=== PATIENT | female | born 1995 | race African-American/Black ===

== ENCOUNTER 2017-12-06 15:43 | Inpatient (IN) | payer BC ==
[2017-12-06 17:13] LABS: ABSOLUTE BASOPHILS # (AUTO) 0.1 10^3/uL (0.0-0.2); ABSOLUTE EOSINOPHILS # (AUTO) 0.1 10^3/uL (0.0-0.6); ABSOLUTE LYMPHOCYTES (AUTO) 2.6 10^3/uL (0.5-4.7); ABSOLUTE MONOCYTES (AUTO) 1.2 10^3/uL (0.1-1.4); ABSOLUTE NEUT (AUTO) 11.1 10^3/uL (1.7-8.2); BASOPHILS % (AUTO) 0.7 % (0-2); EOSINOPHILS % (AUTO) 0.5 % (0-6); HEMATOCRIT 46.5 % (36.0-47.0); HEMOGLOBIN 15.2 g/dL (12.0-15.5); LYMPHOCYTES % (AUTO) 17.1 % (13-45); MEAN CORPUSCULAR HEMOGLOBIN 25.9 pg (27.0-33.4); MEAN CORPUSCULAR HGB CONC 32.7 g/dL (32.0-36.0); MEAN CORPUSCULAR VOLUME 79 fl (80-97); MONOCYTES % (AUTO) 7.9 % (3-13); PLATELET COUNT 139 10^3/uL (150-450); RED BLOOD COUNT 5.86 10^6/uL (3.72-5.28); RED CELL DISTRIBUTION WIDTH 15.5 % (11.5-14.0); SEGMENTED NEUTROPHILS % (AUTO) 73.8 % (42-78); TOTAL CELLS COUNTED % (AUTO) 100 %; WHITE BLOOD COUNT 15.1 10^3/uL (4.0-10.5)
[2017-12-06 17:35] LABS: ALANINE AMINOTRANSFERASE 24 U/L (9-52); ALBUMIN 3.6 g/dL (3.5-5.0); ALKALINE PHOSPHATASE 164 U/L (38-126); ANION GAP 13 (5-19); ASPARTATE AMINO TRANSFERASE 18 U/L (14-36); BILIRUBIN,DIRECT 0.2 mg/dL (0.0-0.4); BILIRUBIN,TOTAL 0.6 mg/dL (0.2-1.3); BLOOD UREA NITROGEN 9 mg/dL (7-20); CALCIUM 8.8 mg/dL (8.4-10.2); CARBON DIOXIDE 22 mmol/L (22-30); CHLORIDE 104 mmol/L (98-107); GLUCOSE 87 mg/dL (75-110); LIPASE 102.2 U/L (23-300); POTASSIUM 4.2 mmol/L (3.6-5.0); SODIUM 138.9 mmol/L (137-145); TOTAL PROTEIN 6.5 g/dL (6.3-8.2)
--- NOTE | 2017-12-06 18:03 | RADIOLOGY REPORT (SQ) ---
EXAM DESCRIPTION: U/S ABDOMEN LIMITED W/O DOP COMPLETED DATE/TIME: 12/06/2017 5:23 pm REASON FOR STUDY: r/o gb disease COMPARISON: None. TECHNIQUE: Dynamic and static grayscale images acquired of the abdomen and recorded on PACS. Additio nal selected color Doppler and spectral images recorded. LIMITATIONS: Study is limited due to the patient's body habitus FINDINGS: PANCREAS: No masses. No peripancreatic edema or fluid collections. LIVER: Echotexture is coarse with increased echogenicity consistent with fatty infiltration. LIVER VASCULATURE: Normal directional flow of the main portal vein. GALLBLADDER: No stones. There is thickening of the mckeon of the gallbladder measuring 6.6 mm. The p ossibility of an acalculous cholecystitis cannot be excluded. This could also be related to adenomyo matosis. No pericholecystic fluid. ULTRASOUND-DETECTED GILL'S SIGN: Negative. INTRAHEPATIC DUCTS AND COMMON DUCT: CBD and intrahepatic ducts normal caliber. No filling defects. INFERIOR VENA CAVA: Normal flow. AORTA: No aneurysm. RIGHT KIDNEY: 11.3 cm in length. Normal echogenicity. No solid or suspicious masses. No hydron ephrosis. No calcifications. PERITONEAL AND RIGHT PLEURAL SPACE: No ascites or effusions. OTHER: No other significant finding. IMPRESSION: FATTY INFILTRATION OF THE LIVER. No gallstones are identified. There is thickening of the mckeon of the gallbladder and the possibility of an acalculous cholecystitis cannot be excluded. This could also be related to adenomyomatosis. Clinical correlation is recommended. Other findings as noted above TECHNICAL DOCUMENTATION: JOB ID: [id number] [employer]- All Rights Reserved Reading location - IP/workstation name: [facility]
[2017-12-06] MEDS ORDERED: ONDANSETRON HCL INJ/PF 4 MG/2 ML SDV IV ONE (18:30)
[2017-12-06] MEDS ORDERED: NORMAL SALINE 1000 ML 1,000 ML IV ONE (18:33)
--- NOTE | 2017-12-06 18:34 | ER Document Report ---
ED GI/ - General Chief Complaint: Vomiting Stated Complaint: VOMITING Time Seen by Provider: 12/06/17 16:05 Mode of Arrival: Ambulatory Information source: Patient - HPI Patient complains to provider of: Abdominal pain Notes: 12/06/17 18:30 Patient is here with her mother at the bedside. She here with complaints of nausea, vomiting, abdominal pain for the last 3 days. Pain has been intermittent. Is located in her right upper quadrant and epigastric area. She reports having fevers at the onset, but believes that fevers have resolved. She denies any dysuria or hematuria. No diarrhea. She states it has been a few days and she has had a bowel movement. She denies any chest pain shortness of breath. No rash. She has had no prior abdominal surgeries. Nothing in particular seems to make the pain better or worse. No headache, blurred vision , numbness, tingling, weakness. No other complaints at this time. - Related Data Allergies/Adverse Reactions: tramadol Allergy (Verified 12/06/17 15:45) Past Medical History - Social History Smoking Status: Current Every Day Smoker Frequency of alcohol use: None Drug Abuse: None Family History: Reviewed & Not Pertinent Patient has suicidal ideation: No Patient has homicidal ideation: No Renal/ Medical History: Denies: Hx Peritoneal Dialysis Past Surgical History: Reports: Hx Orthopedic Surgery Review of Systems - Review of Systems -: Yes All other systems reviewed and negative Physical Exam - Vital signs Vitals: Temp Pulse Resp BP Pulse Ox 98.0 F 92 18 126/75 H 99 12/06/17 15:47 12/06/17 15:47 12/06/17 15:47 12/06/17 15:47 12/06/17 15:47 - Notes Notes: GENERAL: alert, cooperative, nontoxic, no distress. HEAD: normocephalic, atraumatic EYES: conjunctiva pink without discharge, no external redness or swelling. EARS: no external swelling, no external redness NOSE: atraumatic, no external swelling MOUTH/THROAT: mucous membranes moist and pink, posterior pharynx without erythema, swelling, exudate. No trismus or drooling. NECK: soft, supple, full range of motion, no meningismus. CHEST: no distress, lungs clear and equal throughout. No wheezing, rales, rhonchi. CARDIAC: regular rate and rhythm, no murmur, normal capillary refill, normal pulses. No peripheral edema noted. ABDOMEN: Soft, obese. Tenderness to the right upper quadrant and epigastric area. Voluntary guarding. Positive Miles sign. No lower abdominal tenderness. No pain at McBurney's point. BACK: full range of motion, mild right CVA tenderness. EXTREMITIES: full range of motion of all extremities. No redness, no swelling. NEURO: alert and oriented x 3, no focal deficits, full range of motion of all extremities. PYSCH: appropriate mood, affect. Patient is cooperative. SKIN: pink, warm, dry, no rash. Course - Re-evaluation Re-evalutation: 12/06/17 18:47 Patient with elevated white count of 15, tenderness in the right upper quadrant , slight elevation in her alk phos at 164. Ultrasound shows gallbladder wall thickening with no gallstones. Radiologist reads this as a possible acalculous cholecystitis. I discussed the case with Dr. Bedoya of surgery, he will come and evaluate the patient emergency department. 12/06/17 19:16 Patient was seen by Dr. Bedoya. He agrees that she likely has cholecystitis. He will admit the patient overnight for cholecystectomy tomorrow. Patient is aware of this. She will be given Zosyn as requested per the surgeon. - Vital Signs Vital signs: Temp Pulse Resp BP Pulse Ox 98.0 F 92 18 126/75 H 99 12/06/17 15:47 12/06/17 15:47 12/06/17 15:47 12/06/17 15:47 12/06/17 15:47 - Laboratory Result Diagrams: 12/06/17 17:00 12/06/17 17:00 Laboratory results interpreted by me: 12/06/17 12/06/17 12/06/17 17:00 17:00 18:22 WBC 15.1 H RBC 5.86 H MCV 79 L MCH 25.9 L RDW 15.5 H Plt Count 139 L Absolute Neutrophils 11.1 H Alkaline Phosphatase 164 H Urine Protein 100 H Urine Blood SMALL H Urine Urobilinogen 4.0 H Ur Leukocyte Esterase SMALL H - Diagnostic Test Radiology reviewed: Image reviewed, Reports reviewed - No gallstones. Fatty infiltration of the liver. Gallbladder wall thickening concerning for possible acalculous cholecystitis. Discharge - Discharge Clinical Impression: Acute cholecystitis Condition: Stable Disposition: ADMITTED OBSERVATION Admitting Provider: YAZMIN Unit Admitted: Surgical Floor
[2017-12-06 18:44] LABS: APPEARANCE,URINE SLIGHTLY-CLOUDY; BILIRUBIN,URINE NEGATIVE (NEGATIVE); GLUCOSE, URINE NEGATIVE (NEGATIVE); KETONES,URINE NEGATIVE (NEGATIVE); LEUKOCYTE ESTERASE,URINE SMALL (NEGATIVE); NITRITE,URINE NEGATIVE (NEGATIVE); PROTEIN,URINE 100 mg/dL (NEGATIVE); URINE SPECIFIC GRAVITY 1.028
[2017-12-06 18:48] LABS: COLOR,URINE YELLOW
[2017-12-06] MEDS ORDERED: PIPERACILLIN/TAZOBACTAM 4.5 GM VIAL IV ONE (19:15)
--- NOTE | 2017-12-06 19:35 | PDOC H&P ---
History of Present Illness Admission Date/PCP: 12/06/17 Patient complains of: RUQ and epigastric pain with nausea and vomiting History of Present Illness: ADRIANO VINES is a 22 year old female with a 1 week history of intense nausea, constipation, poor appetite, low grade temperature (99.4) as measured at a local [facility] center, and night sweats. An US of the GB has been done which reveals a thickened gallbladder without stones wall as per acute acalculous cholecystitis. Past Medical History Traumatic Medical History: Reports: Other - copper snake bite of her left foot Past Surgical History Past Surgical History: Reports: Orthopedic Surgery - Left foot debridment x 2 after copper snake bite Social History Smoking Status: Current Every Day Smoker - more than 1 ppd Frequency of Alcohol Use: None Hx Recreational Drug Use: No Family History Parental Family History Reviewed: No Children Family History Reviewed: No Sibling(s) Family History Reviewed.: No Medication/Allergy Allergies/Adverse Reactions: tramadol Allergy (Verified 12/06/17 15:45) Physical Exam Vital Signs: Temp Pulse Resp BP Pulse Ox 98.0 F 92 18 126/75 H 99 12/06/17 15:47 12/06/17 15:47 12/06/17 15:47 12/06/17 15:47 12/06/17 15:47 Intake & Output 12/05/17 12/06/17 12/07/17 06:59 06:59 06:59 Weight 137.3 kg General appearance: PRESENT: no acute distress Head exam: PRESENT: atraumatic Respiratory exam: PRESENT: clear to auscultation brent Cardiovascular exam: PRESENT: RRR GI/Abdominal exam: PRESENT: Miles's sign, normal bowel sounds, soft Rectal exam: PRESENT: deferred Musculoskeletal exam: PRESENT: full ROM Neurological exam: PRESENT: alert, altered, awake, oriented to time Skin exam: PRESENT: warm Results Laboratory Results: 12/06/17 17:00 12/06/17 17:00 12/06/17 12/06/17 12/06/17 17:00 17:00 18:22 WBC 15.1 H RBC 5.86 H Hgb 15.2 Hct 46.5 MCV 79 L MCH 25.9 L MCHC 32.7 RDW 15.5 H Plt Count 139 L Seg Neutrophils % 73.8 Lymphocytes % 17.1 Monocytes % 7.9 Eosinophils % 0.5 Basophils % 0.7 Absolute Neutrophils 11.1 H Absolute Lymphocytes 2.6 Absolute Monocytes 1.2 Absolute Eosinophils 0.1 Absolute Basophils 0.1 Sodium 138.9 Potassium 4.2 Chloride 104 Carbon Dioxide 22 Anion Gap 13 BUN 9 Creatinine 0.69 Est GFR ( Amer) > 60 Est GFR (Non-Af Amer) > 60 Glucose 87 Calcium 8.8 Total Bilirubin 0.6 AST 18 ALT 24 Alkaline Phosphatase 164 H Total Protein 6.5 Albumin 3.6 Lipase 102.2 Urine Color YELLOW Urine Appearance SLIGHTLY-CLOUDY Urine pH 5.0 Ur Specific [place]ck 1.028 Urine Protein 100 H Urine Glucose (UA) NEGATIVE Urine Ketones NEGATIVE Urine Blood SMALL H Urine Nitrite NEGATIVE Ur Leukocyte Esterase SMALL H Urine WBC (Auto) 9 Urine RBC (Auto) 3 Impressions: Abdomen Ultrasound 12/06/17 16:07 IMPRESSION: FATTY INFILTRATION OF THE LIVER. No gallstones are identified. There is thickening of the mckeon of the gallbladder and the possibility of an acalculous cholecystitis cannot be excluded. This could also be related to adenomyomatosis. Clinical correlation is recommended. Other findings as noted above Assessment & Plan - Diagnosis (1) Cholecystitis, acute Is this a current diagnosis for this admission?: Yes - Plan Summary Plan Summary: A/ RUQ and epigastric pain with intense nausea Leukocytosis US of GB significant for thickened gallbladder wall @ 6 mm P/ Admit Clear liquid diet NPO after midnight IVF Zosyn 3.375 gr IVPB q6 Consent for laparoscopic cholecystectomy, possible open, possible cholangiogram in AM Procedure,m risks, benefits, complications, including liver bleeding and common bile duct injury requiring transfer to a tertiary center for open repair discussed with the patient, she understand all the above, her questions were answered, and she decided to proceed.
[2017-12-06] MEDS ORDERED: HYDROMORPHONE HCL INJ/PF 2 MG/ML AMPULE ONE (21:40)
[2017-12-06] MEDS ORDERED: ONDANSETRON HCL INJ/PF 4 MG/2 ML SDV ONE (21:43)
[2017-12-06] MEDS ORDERED: HYDROMORPHONE HCL INJ 2 MG/ML 20 ML MDV IV PRN (21:47)
[2017-12-06] MEDS: PIPERACILLIN SODIUM/TAZOBACTAM 3.375 GM in NORMAL SALINE 100 ML IV SCH (23:54)
[2017-12-06] MEDS: FAMOTIDINE INJ/PF 20 MG/2 ML SDV IV SCH (23:54)
[2017-12-07] MEDS ORDERED: NORMAL SALINE 1000 ML 1,000 ML IV PRN (00:01)
[2017-12-07] MEDS ORDERED: HYDROMORPHONE HCL INJ/PF 2 MG/ML AMPULE ONE (00:09)
[2017-12-07 06:06] LABS: ABSOLUTE BASOPHILS # (AUTO) 0.1 10^3/uL (0.0-0.2); ABSOLUTE LYMPHOCYTES (AUTO) 2.2 10^3/uL (0.5-4.7); ABSOLUTE MONOCYTES (AUTO) 0.9 10^3/uL (0.1-1.4); ABSOLUTE NEUT (AUTO) 12.6 10^3/uL (1.7-8.2); BASOPHILS % (AUTO) 0.3 % (0-2); EOSINOPHILS % (AUTO) 0.2 % (0-6); HEMATOCRIT 43.5 % (36.0-47.0); LYMPHOCYTES % (AUTO) 13.8 % (13-45); MEAN CORPUSCULAR HEMOGLOBIN 25.9 pg (27.0-33.4); MEAN CORPUSCULAR HGB CONC 32.3 g/dL (32.0-36.0); MEAN CORPUSCULAR VOLUME 80 fl (80-97); PLATELET COUNT 106 10^3/uL (150-450); RED BLOOD COUNT 5.42 10^6/uL (3.72-5.28); RED CELL DISTRIBUTION WIDTH 15.3 % (11.5-14.0); SEGMENTED NEUTROPHILS % (AUTO) 79.7 % (42-78); TOTAL CELLS COUNTED % (AUTO) 100 %; WHITE BLOOD COUNT 15.8 10^3/uL (4.0-10.5)
[2017-12-07 06:17] LABS: ALANINE AMINOTRANSFERASE 26 U/L (9-52); ALKALINE PHOSPHATASE 136 U/L (38-126); ANION GAP 10 (5-19); ASPARTATE AMINO TRANSFERASE 15 U/L (14-36); BILIRUBIN,DIRECT 0.5 mg/dL (0.0-0.4); BILIRUBIN,TOTAL 0.7 mg/dL (0.2-1.3); BLOOD UREA NITROGEN 10 mg/dL (7-20); CALCIUM 8.1 mg/dL (8.4-10.2); CARBON DIOXIDE 19 mmol/L (22-30); CHLORIDE 110 mmol/L (98-107); GLUCOSE 88 mg/dL (75-110); POTASSIUM 4.4 mmol/L (3.6-5.0); SODIUM 139.4 mmol/L (137-145); TOTAL PROTEIN 5.9 g/dL (6.3-8.2)
[2017-12-07] MEDS: PIPERACILLIN SODIUM/TAZOBACTAM 3.375 GM in NORMAL SALINE 100 ML IV SCH ×4 (06:21→23:45)
[2017-12-07] MEDS ORDERED: BUPIVACAINE HCL 0.5%-EPI 1:200000 INJ/PF 30 ML VIAL ONE (06:50)
[2017-12-07] MEDS ORDERED: FENTANYL CITRATE INJ/PF 250 MCG/5 ML AMPULE ONE (07:00)
[2017-12-07] MEDS ORDERED: FENTANYL CITRATE INJ/PF 100 MCG/2 ML AMPUL ONE (07:01)
[2017-12-07] MEDS ORDERED: MIDAZOLAM 2 MG/2 ML INJ ONE (07:01)
[2017-12-07] MEDS ORDERED: EPHEDRINE SULFATE INJ 50 MG/1 ML AMPULE ONE (07:01)
[2017-12-07] MEDS ORDERED: ACETAMINOPHEN 100 ML IV ONE (07:02)
[2017-12-07] MEDS ORDERED: PROPOFOL INJ 200 MG/20 ML VIAL IV ONE (07:02)
[2017-12-07] MEDS ORDERED: PROMETHAZINE HCL INJ 25 MG/1 ML VIAL IV PRN (08:54)
[2017-12-07] MEDS ORDERED: MEPERIDINE HCL/PF INJ 25 MG/1 ML DISP.SYRIN IV PRN (08:54)
[2017-12-07] MEDS ORDERED: FENTANYL CITRATE INJ/PF 100 MCG/2 ML AMPUL IV PRN ×3 (08:54)
[2017-12-07] MEDS ORDERED: DIPHENHYDRAMINE HCL 50 MG/ML VIAL IV PRN (08:54)
[2017-12-07] MEDS: FENTANYL CITRATE INJ/PF 100 MCG/2 ML AMPUL ONE ×2 (09:50→09:55)
--- NOTE | 2017-12-07 09:53 | Operative Report ---
Operative Report DATE OF SURGERY: 12/07/17 PREOPERATIVE DIAGNOSIS: acute cholecystitis with cholelithiasis POSTOPERATIVE DIAGNOSIS: same OPERATION: laparoscopic cholecystectomy SURGEON: CECILIA ARCE 1ST EN[employer]MENT[employer] HE[employer] INSPECTOR: YESSY TOBAR ANESTHESIA: GA - plus 30 mL 0.5% marcaine TISSUE REMOVED OR ALTERED: gallbladder COMPLICATIONS: none ESTIMATED BLOOD LOSS: < 5mL INTRAOPERATIVE FINDINGS: inflamed gallbladder with cholelithiasis PROCEDURE: laparoscopic cholecystectomy
[2017-12-07] MEDS ORDERED: PROMETHAZINE HCL INJ 25 MG/1 ML VIAL ONE (10:02)
[2017-12-07] MEDS ORDERED: LIDOCAINE 2% INJ-PF (20 MG/ML) 2 ML AMPUL ONE (10:55)
[2017-12-07] MEDS ORDERED: SUCCINYLCHOLINE CHLORIDE INJ 200 MG/10 ML VIAL ONE (10:55)
[2017-12-07] MEDS ORDERED: GLYCOPYRROLATE INJ 0.4 MG/2 ML VIAL ONE (10:55)
[2017-12-07] MEDS ORDERED: NEOSTIGMINE METHYLSULFATE 10 MG/10 ML VIAL ONE (10:55)
[2017-12-07] MEDS ORDERED: ROCURONIUM BROMIDE INJ 50 MG/5 ML VIAL IV ONE (10:55)
[2017-12-07] MEDS ORDERED: ONDANSETRON HCL INJ/PF 4 MG/2 ML SDV ONE (10:55)
[2017-12-07] MEDS ORDERED: DEXAMETHASONE SOD PHOSPHATE INJ 4 MG/1 ML VIAL ONE (10:55)
[2017-12-07] MEDS: FAMOTIDINE INJ/PF 20 MG/2 ML SDV IV SCH (11:25)
[2017-12-07] MEDS: NORMAL SALINE 1000 ML 1,000 ML IV PRN (11:30)
--- NOTE | 2017-12-07 11:30 | OPERATIVE REPORT E ---
Operative Report NAME: ADRIANO VINES : 1995 AGE: 22Y DATE OF SURGERY: 12/07/2017 ROOM: 210 PREOPERATIVE DIAGNOSIS: 1. Acute cholecystitis. 2. Cholelithiasis. POSTOPERATIVE DIAGNOSIS: 1. Acute cholecystitis. 2. Cholelithiasis. OPERATION: Laparoscopic cholecystectomy. SURGEON: CECILIA ARCE M.D. PROCEDURE: The patient was brought into the operating room. The patient was placed in supine position. General anesthesia induced by endotracheal intubation. Abdomen prepped and draped in the usual fashion. A 5 mm port with Optiview adaptor and scope was inserted through the umbilicus twice, but the peritoneal cavity could not be entered. At this point, an incision was made in the left upper quadrant along the midclavicular line and a 5 mm port with scope and Optiview adaptor was inserted inside the peritoneal cavity. A pneumoperitoneum was obtained. The 5 mm port was inserted through the umbilical incision into the peritoneal cavity followed by an 11 mm port and two 5 mm ports inserted through the epigastrium and right upper quadrant of the abdomen, respectively. The patient was placed in a reversed Trendelenburg position with the right side elevated. The gallbladder fundus was grasped and retroflexed, with exposure of the triangle of Calot and the neck was pulled anterior and toward the patient right. With the hook cautery at low settings, the critical view of safety was obtained by dividing the peritoneal attachments of the gallbladder both medially and laterally along the gallbladder body. This was done on either side. The cystic duct was then slowly dissected with the hook cautery at low settings until the critical view of safety was obtained. After this, the cystic duct was double clipped proximally and distally, divided with scissors, and the gallbladder dissected off the liver bed with the hook cautery, extracted from the peritoneal cavity using an Endobag. The CO2 pneumoperitoneum was then re-established and the liver bed was inspected. No active bleeding was noted. The area was irrigated with about 200 mL of normal saline which was fully aspirated. After this, under direct visualization, using a Fadi-Cortez device, the epigastric fascial defect was closed with figure-of-8 0 Vicryl suture which was left untied. All the instruments were removed. The CO2 pneumoperitoneum was released. All ports were removed. The fascia defect in the epigastrium was closed. All the epigastrium was closed with the previously-placed 0 Vicryl figure-of-8 suture. All skin incisions were closed with subcuticular 4-0 Monocryl running suture with Dermabond applied. In addition, all incisions were injected with a total of 30 mL of 0.5% Marcaine with epinephrine. The patient tolerated the procedure well, was extubated, and transferred to the recovery room in satisfactory condition. DICTATING PHYSICIAN: CECILIA ARCE M.D. [id number] PHY#: [id number] ID: [id number] JOB#: [id number] ACCT: [id number] cc:CECILIA ARCE M.D. > MTDD
[2017-12-07] MEDS: HYDROMORPHONE HCL INJ/PF 2 MG/ML AMPULE IV PRN ×4 (15:02→23:45)
[2017-12-07] MEDS ORDERED: ACETAMINOPHEN 325 MG TABLET PO PRN (18:07)
[2017-12-07] MEDS ORDERED: MAGNESIUM CITRATE 296 ML BOTTLE PO PRN (21:37)
[2017-12-07] MEDS: NAPROXEN 250 MG TABLET PO PRN (22:09)
[2017-12-07] MEDS: HEPARIN SOD (PORCINE) 5,000 UNIT/ML 1 ML SYRINGE SUBCUT SCH (23:04)
[2017-12-08] MEDS: FAMOTIDINE INJ/PF 20 MG/2 ML SDV IV SCH ×3 (00:01→21:37)
[2017-12-08] MEDS ORDERED: MAGNESIUM CITRATE 296 ML BOTTLE ONE (00:15)
[2017-12-08] MEDS: PIPERACILLIN SODIUM/TAZOBACTAM 3.375 GM in NORMAL SALINE 100 ML IV SCH ×4 (05:41→23:20)
[2017-12-08] MEDS: NORMAL SALINE 1000 ML 1,000 ML IV PRN ×3 (05:42→23:20)
[2017-12-08 07:00] LABS: HEMATOCRIT 41.6 % (36.0-47.0); HEMOGLOBIN 13.4 g/dL (12.0-15.5); MEAN CORPUSCULAR HEMOGLOBIN 25.8 pg (27.0-33.4); MEAN CORPUSCULAR HGB CONC 32.1 g/dL (32.0-36.0); MEAN CORPUSCULAR VOLUME 80 fl (80-97); PLATELET COUNT 119 10^3/uL (150-450); RED BLOOD COUNT 5.19 10^6/uL (3.72-5.28); RED CELL DISTRIBUTION WIDTH 16.1 % (11.5-14.0); WHITE BLOOD COUNT 13.3 10^3/uL (4.0-10.5)
[2017-12-08 07:13] LABS: ALANINE AMINOTRANSFERASE 40 U/L (9-52); ALBUMIN 2.6 g/dL (3.5-5.0); ALKALINE PHOSPHATASE 105 U/L (38-126); ANION GAP 9 (5-19); ASPARTATE AMINO TRANSFERASE 30 U/L (14-36); BILIRUBIN,DIRECT 0.2 mg/dL (0.0-0.4); BILIRUBIN,TOTAL 0.4 mg/dL (0.2-1.3); BLOOD UREA NITROGEN 8 mg/dL (7-20); CALCIUM 7.8 mg/dL (8.4-10.2); CARBON DIOXIDE 20 mmol/L (22-30); CHLORIDE 109 mmol/L (98-107); GLUCOSE 127 mg/dL (75-110); POTASSIUM 4.1 mmol/L (3.6-5.0); SODIUM 138.1 mmol/L (137-145); TOTAL PROTEIN 4.7 g/dL (6.3-8.2)
[2017-12-08] MEDS ORDERED: MAGNESIUM CITRATE 296 ML BOTTLE PO ONE (07:45)
[2017-12-08] MEDS: HEPARIN SOD (PORCINE) 5,000 UNIT/ML 1 ML SYRINGE SUBCUT SCH ×2 (10:03→21:37)
--- NOTE | 2017-12-08 10:38 | PDOC PROGRESS REPORT ---
Subjective Progress Note for:: 12/08/17 Subjective:: Still having right upper quadrant abdominal pain. No nausea or vomiting. Tolerating a diet. Ambulated. Reason For Visit: ACUTE CHOLECYSTITIS,S/P LAP PARVEEN Physical Exam Vital Signs: Temp Pulse Resp BP Pulse Ox 98.1 F 71 20 138/84 H 96 12/08/17 08:00 12/08/17 08:00 12/08/17 08:00 12/08/17 08:00 12/08/17 08:00 Intake & Output 12/07/17 12/08/17 12/09/17 06:59 06:59 06:59 Intake Total 1350 Balance 1350 Weight 137.3 kg General appearance: PRESENT: no acute distress, cooperative Respiratory exam: PRESENT: clear to auscultation brent Cardiovascular exam: PRESENT: RRR GI/Abdominal exam: PRESENT: soft - Nondistended, focal tenderness to palpation in the right upper quadrant without peritoneal signs. Results Laboratory Results: 12/08/17 06:35 12/08/17 06:35 12/08/17 12/08/17 06:35 06:35 WBC 13.3 H RBC 5.19 Hgb 13.4 Hct 41.6 MCV 80 MCH 25.8 L MCHC 32.1 RDW 16.1 H Plt Count 119 L Sodium 138.1 Potassium 4.1 Chloride 109 H Carbon Dioxide 20 L Anion Gap 9 BUN 8 Creatinine 0.81 Est GFR ( Amer) > 60 Est GFR (Non-Af Amer) > 60 Glucose 127 H Calcium 7.8 L Total Bilirubin 0.4 AST 30 ALT 40 Alkaline Phosphatase 105 Total Protein 4.7 L Albumin 2.6 L Impressions: Abdomen Ultrasound 12/06/17 16:07 IMPRESSION: FATTY INFILTRATION OF THE LIVER. No gallstones are identified. There is thickening of the mckeon of the gallbladder and the possibility of an acalculous cholecystitis cannot be excluded. This could also be related to adenomyomatosis. Clinical correlation is recommended. Other findings as noted above Assessment & Plan - Diagnosis (1) Cholecystitis, acute Is this a current diagnosis for this admission?: Yes Plan: Status post laparoscopic cholecystectomy. The surgeon had recommended IV antibiotics for couple days in the hospital. Encourage ambulation. Lab work looks good this morning.
[2017-12-08] MEDS: HYDROMORPHONE HCL INJ/PF 2 MG/ML AMPULE IV PRN ×3 (11:05→19:54)
[2017-12-08] MEDS: ONDANSETRON HCL INJ/PF 4 MG/2 ML SDV IV PRN ×2 (12:02→21:37)
[2017-12-08] MEDS: NAPROXEN 250 MG TABLET PO PRN (14:24)
[2017-12-09] MEDS: HYDROMORPHONE HCL INJ/PF 2 MG/ML AMPULE IV PRN (01:23)
[2017-12-09] MEDS: ONDANSETRON HCL INJ/PF 4 MG/2 ML SDV IV PRN ×3 (05:35→19:07)
[2017-12-09] MEDS: PIPERACILLIN SODIUM/TAZOBACTAM 3.375 GM in NORMAL SALINE 100 ML IV SCH ×3 (05:35→17:45)
[2017-12-09] MEDS ORDERED: DEXTROSE 40% GEL 15 GM TUBE PO PRN ×2 (05:44)
[2017-12-09] MEDS ORDERED: GLUCAGON,HUMAN RECOMB 1 MG INJ SUBCUT PRN (05:44)
[2017-12-09] MEDS ORDERED: DEXTROSE 50%-WATER 25 GM/50 ML DISP.SYRIN IV PRN ×2 (05:44)
[2017-12-09] MEDS ORDERED: KETOROLAC TROMETHAMINE INJ/PF 30 MG/1 ML SDV ONE (05:47)
[2017-12-09] MEDS ORDERED: KETOROLAC TROMETHAMINE INJ/PF 30 MG/1 ML SDV INJ ONE (06:00)
[2017-12-09] MEDS ORDERED: FENTANYL CITRATE INJ/PF 100 MCG/2 ML AMPUL IV ONE (06:44)
[2017-12-09 06:47] LABS: HEMOGLOBIN 13.3 g/dL (12.0-15.5); MEAN CORPUSCULAR HEMOGLOBIN 26.1 pg (27.0-33.4); MEAN CORPUSCULAR HGB CONC 32.6 g/dL (32.0-36.0); MEAN CORPUSCULAR VOLUME 80 fl (80-97); PLATELET COUNT 129 10^3/uL (150-450); RED BLOOD COUNT 5.12 10^6/uL (3.72-5.28); RED CELL DISTRIBUTION WIDTH 15.8 % (11.5-14.0); WHITE BLOOD COUNT 13.4 10^3/uL (4.0-10.5)
[2017-12-09] MEDS ORDERED: FENTANYL CITRATE INJ/PF 100 MCG/2 ML AMPUL ONE (06:47)
--- NOTE | 2017-12-09 06:48 | PDOC PROGRESS REPORT ---
Subjective Progress Note for:: 12/09/17 Subjective:: Patient very tearful and complaining of right-sided abdominal pain. She gets nauseated with her Dilaudid and has had emesis with it. Patient also complains of shortness of breath. She has also been experiencing vaginal bleeding. Reason For Visit: ACUTE CHOLECYSTITIS,S/P LAP PARVEEN Physical Exam Vital Signs: Temp Pulse Resp BP Pulse Ox 98.1 F 66 16 113/56 L 99 12/09/17 04:11 12/09/17 04:11 12/09/17 04:11 12/09/17 04:11 12/09/17 04:11 Intake & Output 12/07/17 12/08/17 12/09/17 06:59 06:59 06:59 Intake Total 1350 980 Output Total 500 Balance 1350 480 Weight 137.3 kg General appearance: PRESENT: cooperative, other - Tearful but cooperative Eye exam: PRESENT: conjunctiva pink Respiratory exam: PRESENT: clear to auscultation brent Cardiovascular exam: PRESENT: RRR GI/Abdominal exam: PRESENT: other - Soft, difficult to assess distention. Tenderness right upper abdomen without peritoneal signs. Also very tender at her subxiphoid trocar site but no drainage and no erythema. Results Laboratory Results: 12/08/17 06:35 12/08/17 06:35 12/08/17 12/08/17 06:35 06:35 WBC 13.3 H RBC 5.19 Hgb 13.4 Hct 41.6 MCV 80 MCH 25.8 L MCHC 32.1 RDW 16.1 H Plt Count 119 L Sodium 138.1 Potassium 4.1 Chloride 109 H Carbon Dioxide 20 L Anion Gap 9 BUN 8 Creatinine 0.81 Est GFR ( Amer) > 60 Est GFR (Non-Af Amer) > 60 Glucose 127 H Calcium 7.8 L Total Bilirubin 0.4 AST 30 ALT 40 Alkaline Phosphatase 105 Total Protein 4.7 L Albumin 2.6 L Impressions: Abdomen Ultrasound 12/06/17 16:07 IMPRESSION: FATTY INFILTRATION OF THE LIVER. No gallstones are identified. There is thickening of the mckeon of the gallbladder and the possibility of an acalculous cholecystitis cannot be excluded. This could also be related to adenomyomatosis. Clinical correlation is recommended. Other findings as noted above Assessment & Plan - Diagnosis (1) Cholecystitis, acute Is this a current diagnosis for this admission?: Yes Plan: Status post laparoscopic cholecystectomy. At this point after operation she should be getting much better. Await laboratory studies. I have switched her pain medication to Toradol. Will try fentanyl. Her vital signs have been stable. Her oxygen saturations 97% on room air yet she still complains of shortness of breath. Will check chest and abdominal CT with IV contrast to further evaluate her symptoms. Will give her a fluid bolus prior to the CT. I have explained to the patient and her mother that there is a risk of renal harm with the IV contrast with the degree of her pain and shortness of breath, I feel that these studies are indicated. Will obtain a gynecology consultation concerning her vaginal bleed. She states that her menstrual period was a week ago.
[2017-12-09 06:58] LABS: ALANINE AMINOTRANSFERASE 38 U/L (9-52); ALBUMIN 2.9 g/dL (3.5-5.0); ALKALINE PHOSPHATASE 94 U/L (38-126); ANION GAP 8 (5-19); ASPARTATE AMINO TRANSFERASE 34 U/L (14-36); BILIRUBIN,DIRECT 0.3 mg/dL (0.0-0.4); BILIRUBIN,TOTAL 0.6 mg/dL (0.2-1.3); BLOOD UREA NITROGEN 8 mg/dL (7-20); CALCIUM 8.2 mg/dL (8.4-10.2); CARBON DIOXIDE 23 mmol/L (22-30); CHLORIDE 107 mmol/L (98-107); GLUCOSE 97 mg/dL (75-110); SODIUM 137.9 mmol/L (137-145); TOTAL PROTEIN 5.5 g/dL (6.3-8.2)
[2017-12-09 07:09] LABS: POTASSIUM 5.1 mmol/L (3.6-5.0)
[2017-12-09] MEDS ORDERED: NORMAL SALINE 1000 ML 1,000 ML IV ONE (08:30)
--- NOTE | 2017-12-09 09:46 | RADIOLOGY REPORT (SQ) ---
EXAM DESCRIPTION: CTA CHEST COMPLETED DATE/TIME: 12/09/2017 9:27 am REASON FOR STUDY: r/o PE COMPARISON: CT abdomen pelvis same date Right upper quadrant ultrasound 12/06/2017 TECHNIQUE: CT scan of the chest performed using helical scanning technique with dynamic intravenous contrast injection. Images reviewed with lung, soft tissue and bone windows. Reconstructed coronal and sagittal MPR images reviewed. Additional 3 dimensional post-processing performed to develop Maximal Intensity Projection images (NV P). All images stored on PACS. All CT scanners at this facility use dose modulation, iterative reconstruction, and/or weight based d osing when appropriate to reduce radiation dose to as low as reasonably achievable (ALARA). [facility]: Dose Right [facility]: CareDose [facility]: Dose Right [facility]: Teradose 4D [facility]: [employer] CONTRAST TYPE AND DOSE: contrast/concentration: Isovue 370.00 mg/ml; Total Contrast Delivered: 77.0 ml; Total Saline Delivered: 100.0 ml Contrast bolus optimized for the pulmonary arteries and aorta. RENAL FUNCTION: Creatinine 0.89 RADIATION DOSE: CT Rad equipment meets quality standard of care and radiation dose reduction techniq ues were employed. CTDIvol: 14.8 - 31.7 mGy. DLP: 3089 mGy-cm. . LIMITATIONS: None. FINDINGS: LUNGS AND PLEURA: Trace right pleural effusion in the posterior costophrenic sulcus. Bandlike atelectasis in the posterior right lower lobe. Left hemithorax unremarkable. AORTA AND GREAT VESSELS: No aneurysm. Contrast bolus not optimized for the aorta. HEART: No pericardial effusion. No significant coronary artery calcifications. PULMONARY ARTERIES: No emboli visualized in the main pulmonary arteries or the segmental branches. HILAR AND MEDIASTINAL STRUCTURES: There are mildly enlarged prevascular lymph nodes on axial images 3 2-36, about 1 cm short axis. These are nonspecific. HARDWARE: None in the chest. UPPER ABDOMEN: Please see CT abdomen pelvis THYROID AND OTHER SOFT TISSUES: No masses. No adenopathy. BONES: No acute or significant finding. 3D MIPS: Confirm above findings. OTHER: No other significant finding. IMPRESSION: No CT angio evidence of acute pulmonary emboli. No thoracic aortic dissection. Trace right pleural effusion with right basilar atelectasis Report called to Dr. Guaman COMMENT: Quality ID # [id number]: Final reports with documentation of one or more dose reduction techniques (e.g., Automated exposure control, adjustment of the mA and/or kV according to patient size, use of iterative reconstruction technique) TECHNICAL DOCUMENTATION: JOB ID: [id number] [employer]- All Rights Reserved Reading location - IP/workstation name: [facility]
--- NOTE | 2017-12-09 09:51 | RADIOLOGY REPORT (SQ) ---
EXAM DESCRIPTION: CT ABD/PELVIS WITH IV ONLY COMPLETED DATE/TIME: 12/09/2017 9:27 am REASON FOR STUDY: abdominal pain COMPARISON: CT angio chest same date TECHNIQUE: CT scan of the abdomen and pelvis performed using helical scanning technique with dynamic intravenous contrast injection. No oral contrast. Images reviewed with lung, soft tissue, and bone windows. Reconstructed coronal and sagittal MPR images reviewed. Delayed images for evaluation of the urinary system also acquired. All images stored on PACS. All CT scanners at this facility use dose modulation, iterative reconstruction, and/or weight based d osing when appropriate to reduce radiation dose to as low as reasonably achievable (ALARA). [facility]: Dose Right [facility]: CareDose [facility]: Dose Right [facility]: Teradose 4D [facility]: [employer] CONTRAST TYPE AND DOSE: 77 mL IV Isovue 370- low osmolar. RENAL FUNCTION: None required. The patient is less than 50 years old. RADIATION DOSE: 47 mGy. LIMITATIONS: None. FINDINGS: Post recent laparoscopic cholecystectomy. There is a small amount of fluid in the gallbla dder fossa, and small amount of free intraperitoneal air. Air along the umbilicus and anterior abdom inal wall. Small amount of free pelvic fluid. These findings are appropriate for postop appearance. These findings were discussed with Dr. Guaman LOWER CHEST: Trace right pleural effusion with right basilar atelectasis LIVER: Normal size. No masses. No dilated ducts. SPLEEN: Normal size. No focal lesions. PANCREAS: No masses. No significant calcifications. No adjacent inflammation or peripancreatic fluid collections. Pancreatic duct not dilated. GALLBLADDER: Surgically absent as above ADRENAL GLANDS: No significant masses or asymmetry. RIGHT KIDNEY AND URETER: No solid masses. No significant calcifications. No hydronephrosis or hyd roureter. LEFT KIDNEY AND URETER: No solid masses. No significant calcifications. No hydronephrosis or hydr oureter. AORTA AND VESSELS: No aneurysm. No dissection. Renal arteries, SMA, celiac without stenosis. RETROPERITONEUM: No retroperitoneal adenopathy, hemorrhage or masses. BOWEL AND PERITONEAL CAVITY: No bowel obstruction. Small amount of postoperative free air and free f luid APPENDIX: Normal retrocecal appendix on axial images 52-59. Small amount of adjacent right pericolic gutter fluid from recent surgery. PELVIS: Small amount of free pelvic fluid. Female pelvic organs, bladder unremarkable. ABDOMINAL WALL: Small amount of postoperative anterior abdominal wall air BONES: No significant or acute findings. OTHER: No other significant finding. IMPRESSION: Postoperative appearance. Gallbladder surgically absent. Otherwise unremarkable study. TECHNICAL DOCUMENTATION: JOB ID: [id number] Quality ID # [id number]: Final reports with documentation of one or more dose reduction techniques (e.g., Au tomated exposure control, adjustment of the mA and/or kV according to patient size, use of iterative reconstruction technique) 2010 [employer]- All Rights Reserved Reading location - IP/workstation name: [facility]
[2017-12-09] MEDS: FAMOTIDINE INJ/PF 20 MG/2 ML SDV IV SCH ×2 (10:28→21:50)
[2017-12-09] MEDS: HEPARIN SOD (PORCINE) 5,000 UNIT/ML 1 ML SYRINGE SUBCUT SCH (11:34)
[2017-12-09] MEDS: KETOROLAC TROMETHAMINE INJ/PF 30 MG/1 ML SDV IV PRN ×2 (13:54→20:02)
--- NOTE | 2017-12-09 14:00 | RADIOLOGY REPORT (SQ) ---
EXAM DESCRIPTION: NM HIDA SCAN COMPLETED DATE/TIME: 12/09/2017 1:34 pm REASON FOR STUDY: r/o bile leak COMPARISON: CT chest abdomen pelvis 12/09/2017 Right upper quadrant ultrasound 12/06/2017 RADIONUCLIDE AND DOSE: DOSAGE RADIONUCLIDE: 4.6 millicuries Tc99m Mebrofenin. DOSAGE MORPHINE: Not required. The route of agent administration: Intravenous TECHNIQUE: Serial imaging right upper quadrant up to 60 minutes following injection of radionuclide. Patient imaged AP and Right Lateral. LIMITATIONS: None. FINDINGS: There is prompt homogeneous uptake throughout the liver. Liver activity does not clear by 60 minutes. Common bile duct is identified at 12 minutes. The gallbladder is surgically absent. There is no accumulation of activity in the gallbladder fossa worrisome for bile leak. Small amount of duodenum activity identified. IMPRESSION: No Bile leak identified TECHNICAL DOCUMENTATION: JOB ID: [id number] [employer]- All Rights Reserved Reading location - IP/workstation name: [email or web address]
--- NOTE | 2017-12-09 14:05 | CONSULTATION REPORT E ---
Consultation Report NAME: ADRIANO VINES : 1995 AGE: 22Y DATE: 12/06/2017 210 A TO: Jaret PATEL M.D. FROM: DANIELLE LIRA M.D. Requesting Physician The patient is a 22 year old who we are asked to see for vaginal bleeding. She had a cholecystectomy 2 days ago and then began bleeding. In her history, she is on control pills, but missed the pills and then began bleeding after her surgery, so she doubled up on her pills yesterday. The patient has a negative history and has not had any problems with bleeding in the past. Her physical examination was deferred because she was in excruciating pain and was unable to be examined today. However, our assessment is a 22 year old with irregular bleeding, having missed her control pill. 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 DICTATING PHYSICIAN: Jaret PATEL M.D. [id number] PHY#: [id number] ID: [id number] JOB#: [id number] ACCT: [id number] cc:Jaret PATEL M.D. >
--- NOTE | 2017-12-09 20:03 | PDOC PROGRESS REPORT ---
Subjective Progress Note for:: 12/09/17 Subjective:: Patient continues to have pain similar to pain that brought her to the hospital but is worse she says. Associated nausea and vomiting. Reason For Visit: ACUTE CHOLECYSTITIS,S/P LAP PARVEEN Physical Exam Vital Signs: Temp Pulse Resp BP Pulse Ox 97.6 F 66 20 142/82 H 100 12/09/17 16:00 12/09/17 16:00 12/09/17 16:00 12/09/17 16:00 12/09/17 16:00 Intake & Output 12/08/17 12/09/17 12/10/17 06:59 06:59 06:59 Intake Total 1350 980 240 Output Total 500 Balance 1350 480 240 Weight 137.3 kg General appearance: PRESENT: morbidly obese Head exam: PRESENT: atraumatic, normocephalic Respiratory exam: PRESENT: clear to auscultation brent. ABSENT: rales, rhonchi, wheezes Cardiovascular exam: PRESENT: RRR. ABSENT: diastolic murmur, rubs, systolic murmur GI/Abdominal exam: PRESENT: other - Obese abdomen, incisions are clean, dry, intact. soft. Neurological exam: PRESENT: alert, awake, oriented to person, oriented to place , oriented to time, oriented to situation, CN II-XII grossly intact. ABSENT: motor sensory deficit Results Laboratory Results: 12/09/17 06:20 12/09/17 06:20 12/09/17 12/09/17 06:20 06:20 WBC 13.4 H RBC 5.12 Hgb 13.3 Hct 41.0 MCV 80 MCH 26.1 L MCHC 32.6 RDW 15.8 H Plt Count 129 L Sodium 137.9 Potassium 5.1 H D Chloride 107 Carbon Dioxide 23 Anion Gap 8 BUN 8 Creatinine 0.89 Est GFR ( Amer) > 60 Est GFR (Non-Af Amer) > 60 Glucose 97 Calcium 8.2 L Total Bilirubin 0.6 AST 34 ALT 38 Alkaline Phosphatase 94 Total Protein 5.5 L Albumin 2.9 L Lipase 111.0 Impressions: Abdomen Ultrasound 12/06/17 16:07 IMPRESSION: FATTY INFILTRATION OF THE LIVER. No gallstones are identified. There is thickening of the mckeon of the gallbladder and the possibility of an acalculous cholecystitis cannot be excluded. This could also be related to adenomyomatosis. Clinical correlation is recommended. Other findings as noted above Abdomen/Pelvis CT 12/09/17 00:00 IMPRESSION: Postoperative appearance. Gallbladder surgically absent. Otherwise unremarkable study. Chest/Abdomen CTA 12/09/17 00:00 IMPRESSION: No CT angio evidence of acute pulmonary emboli. No thoracic aortic dissection. Trace right pleural effusion with right basilar atelectasis Report called to Dr. Guaman Hepatobiliary Scan Nuclear Medicine 12/09/17 00:00 IMPRESSION: No Bile leak identified Assessment & Plan - Diagnosis (1) Abdominal pain Is this a current diagnosis for this admission?: Yes (2) Epigastric abdominal pain Is this a current diagnosis for this admission?: Yes - Plan Summary Plan Summary: F/U CT abdomen/pelvis already ordered. Continue pain control.
[2017-12-09] MEDS: FENTANYL CITRATE INJ/PF 100 MCG/2 ML AMPUL IV PRN (21:50)
[2017-12-10] MEDS: HEPARIN SOD (PORCINE) 5,000 UNIT/ML 1 ML SYRINGE SUBCUT SCH ×3 (01:20→22:22)
[2017-12-10] MEDS: NORMAL SALINE 1000 ML 1,000 ML IV PRN ×4 (01:29→21:40)
[2017-12-10] MEDS: ONDANSETRON HCL INJ/PF 4 MG/2 ML SDV IV PRN ×3 (01:54→15:52)
[2017-12-10] MEDS: FENTANYL CITRATE INJ/PF 100 MCG/2 ML AMPUL IV PRN ×5 (01:55→18:26)
[2017-12-10] MEDS: FAMOTIDINE INJ/PF 20 MG/2 ML SDV IV SCH ×2 (09:26→22:15)
[2017-12-10] MEDS ORDERED: OXYCODONE-ACETAMINOPHEN 5-325 MG TABLET PO PRN (11:29)
[2017-12-10] MEDS ORDERED: OXYCODONE HCL IR 5 MG TABLET PO PRN (11:30)
[2017-12-10 12:07] LABS: ABSOLUTE BASOPHILS # (AUTO) 0.1 10^3/uL (0.0-0.2); ABSOLUTE LYMPHOCYTES (AUTO) 2.1 10^3/uL (0.5-4.7); ABSOLUTE MONOCYTES (AUTO) 1.1 10^3/uL (0.1-1.4); ABSOLUTE NEUT (AUTO) 11.4 10^3/uL (1.7-8.2); BASOPHILS % (AUTO) 0.7 % (0-2); EOSINOPHILS % (AUTO) 0.1 % (0-6); HEMATOCRIT 39.3 % (36.0-47.0); HEMOGLOBIN 12.6 g/dL (12.0-15.5); LYMPHOCYTES % (AUTO) 14.4 % (13-45); MEAN CORPUSCULAR HEMOGLOBIN 25.7 pg (27.0-33.4); MEAN CORPUSCULAR VOLUME 80 fl (80-97); MONOCYTES % (AUTO) 7.5 % (3-13); PLATELET COUNT 127 10^3/uL (150-450); RED BLOOD COUNT 4.89 10^6/uL (3.72-5.28); RED CELL DISTRIBUTION WIDTH 15.9 % (11.5-14.0); SEGMENTED NEUTROPHILS % (AUTO) 77.3 % (42-78); TOTAL CELLS COUNTED % (AUTO) 100 %; WHITE BLOOD COUNT 14.7 10^3/uL (4.0-10.5)
[2017-12-10 12:31] LABS: ANION GAP 11 (5-19); BLOOD UREA NITROGEN 8 mg/dL (7-20); CALCIUM 7.6 mg/dL (8.4-10.2); CARBON DIOXIDE 18 mmol/L (22-30); CHLORIDE 109 mmol/L (98-107); GLUCOSE 85 mg/dL (75-110); POTASSIUM 4.2 mmol/L (3.6-5.0); SODIUM 137.5 mmol/L (137-145)
[2017-12-10] MEDS ORDERED: SUCCINYLCHOLINE CHLORIDE INJ 200 MG/10 ML VIAL ONE (13:42)
--- NOTE | 2017-12-10 13:53 | PDOC PROGRESS REPORT ---
Subjective Progress Note for:: 12/10/17 Subjective:: POD #3 s/p laparoscopic cholecystectomy Patient continues to complain of nausea and vomiting; 'can't keep anything down ' she says. Her symptoms on admission were more of nausea and vomiting than of pain and they have worsened since after surgery. She had CT angio chest and CT abd/pelvis yesterday as well as a HIDA scan all without any significant pathology found. Reason For Visit: ACUTE CHOLECYSTITIS,S/P LAP PARVEEN Physical Exam Vital Signs: Temp Pulse Resp BP Pulse Ox 97.9 F 74 18 113/50 L 100 12/10/17 11:15 12/10/17 11:15 12/10/17 11:15 12/10/17 11:15 12/10/17 11:15 Intake & Output 12/09/17 12/10/17 12/11/17 06:59 06:59 06:59 Intake Total 980 740 Output Total 500 Balance 480 740 General appearance: PRESENT: morbidly obese, other Neck exam: PRESENT: other - short neck Respiratory exam: PRESENT: clear to auscultation brent. ABSENT: rales, rhonchi, wheezes Cardiovascular exam: PRESENT: RRR. ABSENT: diastolic murmur, rubs, systolic murmur GI/Abdominal exam: PRESENT: normal bowel sounds, soft, other - incisions are clean and dry, intact Neurological exam: PRESENT: alert, awake, oriented to person, oriented to place , oriented to time, oriented to situation, CN II-XII grossly intact. ABSENT: motor sensory deficit Results Laboratory Results: 12/10/17 11:23 12/10/17 11:23 12/10/17 12/10/17 12/10/17 06:07 11:23 11:23 WBC 14.7 H RBC 4.89 Hgb 12.6 Hct 39.3 MCV 80 MCH 25.7 L MCHC 32.0 RDW 15.9 H Plt Count 127 L Seg Neutrophils % 77.3 Lymphocytes % 14.4 Monocytes % 7.5 Eosinophils % 0.1 Basophils % 0.7 Absolute Neutrophils 11.4 H Absolute Lymphocytes 2.1 Absolute Monocytes 1.1 Absolute Eosinophils 0.0 Absolute Basophils 0.1 Sodium 137.5 Potassium 4.2 Chloride 109 H Carbon Dioxide 18 L Anion Gap 11 BUN 8 Creatinine 0.83 Est GFR ( Amer) > 60 Est GFR (Non-Af Amer) > 60 Glucose 85 Calcium 7.6 L Lipase 100.8 Impressions: Abdomen Ultrasound 12/06/17 16:07 IMPRESSION: FATTY INFILTRATION OF THE LIVER. No gallstones are identified. There is thickening of the mckeon of the gallbladder and the possibility of an acalculous cholecystitis cannot be excluded. This could also be related to adenomyomatosis. Clinical correlation is recommended. Other findings as noted above Abdomen/Pelvis CT 12/09/17 00:00 IMPRESSION: Postoperative appearance. Gallbladder surgically absent. Otherwise unremarkable study. Chest/Abdomen CTA 12/09/17 00:00 IMPRESSION: No CT angio evidence of acute pulmonary emboli. No thoracic aortic dissection. Trace right pleural effusion with right basilar atelectasis Report called to Dr. Guaman Hepatobiliary Scan Nuclear Medicine 12/09/17 00:00 IMPRESSION: No Bile leak identified Assessment & Plan - Diagnosis (1) Abdominal pain Is this a current diagnosis for this admission?: Yes (2) Epigastric abdominal pain Is this a current diagnosis for this admission?: Yes (3) Nausea & vomiting Qualifiers: Vomiting type: unspecified Vomiting Intractability: unspecified Qualified Code(s): R11.2 - Nausea with vomiting, unspecified Is this a current diagnosis for this admission?: Yes - Plan Summary Plan Summary: Will plan to perform an EGD given persistence/worsening of nausea and vomiting since after surgery to determine if she had a different etiology for her symptoms altogether.
[2017-12-10] MEDS ORDERED: SIMETHICONE 80 MG TAB.CHEW PO PRN (15:05)
[2017-12-10] MEDS ORDERED: FENTANYL CITRATE INJ/PF 100 MCG/2 ML AMPUL ONE (18:00)
[2017-12-10] MEDS ORDERED: MIDAZOLAM 2 MG/2 ML INJ ONE (18:00)
[2017-12-10] MEDS ORDERED: ONDANSETRON HCL INJ/PF 4 MG/2 ML SDV ONE (18:00)
[2017-12-10] MEDS ORDERED: PROPOFOL INJ 200 MG/20 ML VIAL IV ONE (18:00)
[2017-12-10] MEDS ORDERED: LIDOCAINE 2% INJ-PF (20 MG/ML) 10 ML AMPUL ONE (18:00)
[2017-12-10] MEDS ORDERED: ONDANSETRON HCL INJ/PF 4 MG/2 ML SDV IV PRN (19:01)
[2017-12-10] MEDS ORDERED: MEPERIDINE HCL/PF INJ 25 MG/1 ML DISP.SYRIN IV PRN (19:01)
[2017-12-10] MEDS ORDERED: FENTANYL CITRATE INJ/PF 100 MCG/2 ML AMPUL IV PRN ×2 (19:01)
[2017-12-10] MEDS ORDERED: DIPHENHYDRAMINE HCL 50 MG/ML VIAL IV PRN (19:01)
[2017-12-10] MEDS ORDERED: PROMETHAZINE HCL INJ 25 MG/1 ML VIAL IV PRN ×2 (19:01)
--- NOTE | 2017-12-10 21:05 | Operative Report ---
Operative Report DATE OF SURGERY: 12/10/17 PREOPERATIVE DIAGNOSIS: Persistent Nausea and Vomiting with Epigastric pain POSTOPERATIVE DIAGNOSIS: Persistent Nausea and Vomiting with Epigastric pain OPERATION: Esophagogastroduodenoscopy with biopsy SURGEON: HARISH HERNANDEZ ANESTHESIA: GA TISSUE REMOVED OR ALTERED: gastric antral and fundic biopsies COMPLICATIONS: none ESTIMATED BLOOD LOSS: < 5mL INTRAOPERATIVE FINDINGS: 1. Generalized Erosive Gastritis. 2. Duodenitis. 3. GEJ = Z line at 41cm. 4. No hiatal hernia; Hill grade 1 gastroesophageal flap valve. PROCEDURE: The patient was brought to the operating room and placed on the operating table. General anesthesia was administered and she was positioned in the left lateral decubitus position. A mouthguard was placed. A time out was done. The endoscope was passed through the mouthguard into the oropharynx and the esophagus intubated. The scope was passed down to the stomach and the pyloric channel intubated to enter the duodenum which was examined up to the second portion. Bile was seen oozing from the papilla. There was significant duodenitis ; biopsies were taken. The scope was withdrawn into the stomach. She was noted to have significant generalized erosive gastritis. A retroflexed view was performed revealing no hiatal hernia; she had a Hill grade 1 gastroesophageal flap-valve; she also had erosive gastritis involving the fundus. Biopsies were taken. Retroflexion was undone. Antral biopsies were taken at the areas of erosive gastritis. The scope was withdrawn into the esophagus and then out of the patient with all the above findings noted.
[2017-12-10] MEDS: HYDROMORPHONE HCL INJ/PF 2 MG/ML AMPULE IV PRN (21:38)
[2017-12-11] MEDS: SUCRALFATE SUSP 1 GM/10 ML UDCUP PO SCH ×5 (00:25→23:11)
[2017-12-11] MEDS: ONDANSETRON HCL INJ/PF 4 MG/2 ML SDV IV PRN ×3 (00:59→22:31)
[2017-12-11] MEDS: HYDROMORPHONE HCL INJ/PF 2 MG/ML AMPULE IV PRN (01:12)
[2017-12-11] MEDS: PANTOPRAZOLE SODIUM 40 MG VIAL IV SCH ×2 (05:39→17:06)
[2017-12-11] MEDS: FENTANYL CITRATE INJ/PF 100 MCG/2 ML AMPUL IV PRN ×4 (07:25→20:39)
[2017-12-11] MEDS: HEPARIN SOD (PORCINE) 5,000 UNIT/ML 1 ML SYRINGE SUBCUT SCH (09:10)
[2017-12-11] MEDS: FAMOTIDINE INJ/PF 20 MG/2 ML SDV IV SCH ×2 (09:10→23:13)
[2017-12-11 10:55] LABS: ABSOLUTE BASOPHILS # (AUTO) 0.1 10^3/uL (0.0-0.2); ABSOLUTE LYMPHOCYTES (AUTO) 2.1 10^3/uL (0.5-4.7); ABSOLUTE MONOCYTES (AUTO) 1.1 10^3/uL (0.1-1.4); ABSOLUTE NEUT (AUTO) 10.9 10^3/uL (1.7-8.2); EOSINOPHILS % (AUTO) 0.2 % (0-6); HEMOGLOBIN 12.5 g/dL (12.0-15.5); LYMPHOCYTES % (AUTO) 14.4 % (13-45); MEAN CORPUSCULAR HEMOGLOBIN 25.6 pg (27.0-33.4); MEAN CORPUSCULAR VOLUME 80 fl (80-97); MONOCYTES % (AUTO) 7.7 % (3-13); PLATELET COUNT 106 10^3/uL (150-450); RED BLOOD COUNT 4.87 10^6/uL (3.72-5.28); RED CELL DISTRIBUTION WIDTH 16.3 % (11.5-14.0); SEGMENTED NEUTROPHILS % (AUTO) 76.7 % (42-78); TOTAL CELLS COUNTED % (AUTO) 100 %; WHITE BLOOD COUNT 14.2 10^3/uL (4.0-10.5)
[2017-12-11 11:29] LABS: ANION GAP 6 (5-19); BLOOD UREA NITROGEN 8 mg/dL (7-20); CALCIUM 7.8 mg/dL (8.4-10.2); CARBON DIOXIDE 18 mmol/L (22-30); CHLORIDE 112 mmol/L (98-107); GLUCOSE 92 mg/dL (75-110); POTASSIUM 4.3 mmol/L (3.6-5.0)
[2017-12-11] MEDS ORDERED: FUROSEMIDE INJ/PF 20 MG/2 ML SDV IV ONE (12:30)
[2017-12-11] MEDS ORDERED: BISACODYL 10 MG SUPP.RECT PR PRN (14:47)
--- NOTE | 2017-12-11 22:15 | PDOC PROGRESS REPORT ---
Subjective Progress Note for:: 12/11/17 Subjective:: POD # 4 s/p laparoscopic cholecystectomy POD #1 s/p EGD Nausea and vomiting are improved although she threw up once last night after the EGD. Reason For Visit: ACUTE CHOLECYSTITIS,S/P LAP PARVEEN Physical Exam Vital Signs: Temp Pulse Resp BP Pulse Ox 98.5 F 69 20 142/70 H 98 12/11/17 19:16 12/11/17 19:16 12/11/17 19:16 12/11/17 19:16 12/11/17 19:16 Intake & Output 12/10/17 12/11/17 12/12/17 06:59 06:59 06:59 Intake Total 740 1700 1180 Output Total 0 Balance 740 1700 1180 Weight 151 kg General appearance: PRESENT: morbidly obese Respiratory exam: PRESENT: clear to auscultation brent. ABSENT: rales, rhonchi, wheezes Cardiovascular exam: PRESENT: RRR. ABSENT: diastolic murmur, rubs, systolic murmur GI/Abdominal exam: PRESENT: normal bowel sounds, soft, other - incisions are clean and dry Neurological exam: PRESENT: alert, awake, oriented to person, oriented to place , oriented to time, oriented to situation, CN II-XII grossly intact. ABSENT: motor sensory deficit Results Laboratory Results: 12/11/17 10:44 12/11/17 10:44 12/11/17 12/11/17 10:44 10:44 WBC 14.2 H RBC 4.87 Hgb 12.5 Hct 39.0 MCV 80 MCH 25.6 L MCHC 32.0 RDW 16.3 H Plt Count 106 L Seg Neutrophils % 76.7 Lymphocytes % 14.4 Monocytes % 7.7 Eosinophils % 0.2 Basophils % 1.0 Absolute Neutrophils 10.9 H Absolute Lymphocytes 2.1 Absolute Monocytes 1.1 Absolute Eosinophils 0.0 Absolute Basophils 0.1 Sodium 136.0 L Potassium 4.3 Chloride 112 H Carbon Dioxide 18 L Anion Gap 6 BUN 8 Creatinine 0.81 Est GFR ( Amer) > 60 Est GFR (Non-Af Amer) > 60 Glucose 92 Calcium 7.8 L Impressions: Abdomen Ultrasound 12/06/17 16:07 IMPRESSION: FATTY INFILTRATION OF THE LIVER. No gallstones are identified. There is thickening of the mckeon of the gallbladder and the possibility of an acalculous cholecystitis cannot be excluded. This could also be related to adenomyomatosis. Clinical correlation is recommended. Other findings as noted above Abdomen/Pelvis CT 12/09/17 00:00 IMPRESSION: Postoperative appearance. Gallbladder surgically absent. Otherwise unremarkable study. Chest/Abdomen CTA 12/09/17 00:00 IMPRESSION: No CT angio evidence of acute pulmonary emboli. No thoracic aortic dissection. Trace right pleural effusion with right basilar atelectasis Report called to Dr. Guaman Hepatobiliary Scan Nuclear Medicine 12/09/17 00:00 IMPRESSION: No Bile leak identified Assessment & Plan - Diagnosis (1) Abdominal pain Is this a current diagnosis for this admission?: Yes (2) Epigastric abdominal pain Is this a current diagnosis for this admission?: Yes (3) Nausea & vomiting Qualifiers: Vomiting type: unspecified Vomiting Intractability: unspecified Qualified Code(s): R11.2 - Nausea with vomiting, unspecified Is this a current diagnosis for this admission?: Yes (4) Erosive gastritis Is this a current diagnosis for this admission?: Yes - Plan Summary Plan Summary: She is fluid overloaded (weight today just over 150 kg , was 137 kg on admission - has never been this weight before) - will give lasix 20 mg Allow regular diet today If continued improvement may be discharged tomorrow
[2017-12-12] MEDS: FENTANYL CITRATE INJ/PF 100 MCG/2 ML AMPUL IV PRN (01:16)
[2017-12-12] MEDS: HEPARIN SOD (PORCINE) 5,000 UNIT/ML 1 ML SYRINGE SUBCUT SCH ×2 (04:22→09:47)
[2017-12-12] MEDS: PANTOPRAZOLE SODIUM 40 MG VIAL IV SCH (05:12)
[2017-12-12] MEDS: ONDANSETRON HCL INJ/PF 4 MG/2 ML SDV IV PRN (05:12)
[2017-12-12] MEDS: SUCRALFATE SUSP 1 GM/10 ML UDCUP PO SCH (05:12)
[2017-12-12] MEDS: FAMOTIDINE INJ/PF 20 MG/2 ML SDV IV SCH (10:18)
[2017-12-12 11:02] LABS: HEMATOCRIT 40.7 % (36.0-47.0); MEAN CORPUSCULAR HEMOGLOBIN 25.7 pg (27.0-33.4); MEAN CORPUSCULAR VOLUME 81 fl (80-97); PLATELET COUNT 142 10^3/uL (150-450); RED BLOOD COUNT 5.06 10^6/uL (3.72-5.28); RED CELL DISTRIBUTION WIDTH 16.3 % (11.5-14.0); WHITE BLOOD COUNT 15.8 10^3/uL (4.0-10.5)
[2017-12-12 11:20] LABS: ANION GAP 6 (5-19); BLOOD UREA NITROGEN 7 mg/dL (7-20); CALCIUM 8.3 mg/dL (8.4-10.2); CARBON DIOXIDE 26 mmol/L (22-30); CHLORIDE 105 mmol/L (98-107); GLUCOSE 111 mg/dL (75-110); POTASSIUM 3.9 mmol/L (3.6-5.0); SODIUM 136.6 mmol/L (137-145)
[2017-12-12 11:27] LABS: ABSOLUTE LYMPHOCYTES# (MANUAL) 2.7 10^3/uL (0.5-4.7); ABSOLUTE MONOCYTES # (MANUAL) 0.5 10^3/uL (0.1-1.4); ABSOLUTE NEUTROPHILS# (MANUAL) 12.5 10^3/uL (1.7-8.2); BASOPHILS % (MANUAL) 1 % (0-2); EOSINOPHILS % (MANUAL) 0 % (0-6); LYMPHOCYTES % (MANUAL) 16 % (13-45); MONOCYTES % (MANUAL) 3 % (3-13); SEGMENTED NEUTROPHILS % (MAN) 79 % (42-78); TOTAL CELLS COUNTED 100
[2017-12-12 11:29] LABS: ANISOCYTOSIS 1+; PLATELET COMMENT DECREASED; TOXIC GRANULATION 1+
[2017-12-12 11:57] VITALS: BP 136/81
--- NOTE | 2017-12-12 13:49 | DISCHARGE SUMMARY E ---
Discharge Summary NAME: ADRIANO VINES : 1995 AGE: 22Y ADMITTED: 12/06/2017 DISCHARGED: 12/12/2017 REASON FOR ADMISSION: Acute abdominal pain. SUMMARY OF HOSPITALIZATION: Patient is a 22-year-old -[place] female, morbidly obese, smoker, presented to the emergency department complaining of abdominal pain, nausea, and vomiting. She was evaluated and found to have a leukocytosis, left shift, mild acidosis, and gallbladder ultrasound showing cholelithiasis with thickened gallbladder wall consistent with cholecystitis. She was admitted to the surgicalist service for acute cholecystitis by Dr. Bedoya. Patient was kept n.p.o. on IV fluids and taken to the operating room by Dr. Chad Bedoya where she underwent a laparoscopic cholecystectomy under general anesthesia on 12/08/2017. She tolerated the procedure well. There were no post complications. However, the patient had persisting abdominal pain of unexplained etiology for several days thereafter. She underwent CT scanning of the chest/abdomen as well as chest the following day which were all negative. She underwent HIDA scan as well and this showed no evidence of biliary tract leak. Her liver function studies remained normal. She initially presented with a mild thrombocytopenia and this dipped down to 106,000 postoperative day 5 but by postoperative day 6, the platelets are back up to 142. Patient subsequently underwent evaluation by Dr. Alvarez, rn travel, for vaginal bleeding and this was felt to be due to patient being off control pills. Because of persisting pain and nausea, she underwent upper GI by Dr. Smart on 12/10 and was found to erosive gastritis. She was started on Carafate and this clinically improved her condition. By the sixth postoperative day she was felt to have received maximum benefit from the hospitalization and was ready for discharge home. Discussion was held between Dr. Kaur, general surgeon, and Dr. Mistry, oncologist, regarding patient's thrombocytopenia; the consensus was that this represented a reactive thrombocytopenia and no further workup was indicated at this time. A followup CBC check on an outpatient basis was recommended. FINAL DIAGNOSES: 1. Acute cholecystitis, status post laparoscopic cholecystectomy by Dr. Bedoya. 2. Erosive gastritis, status post EGD. 3. Morbid obesity. 4. Smoker. DISPOSITION: Patient will be discharged home in the care of her family. Follow up with [facility] in approximately 1-2 weeks; she has been instructed to stop smoking to help her gastritis, and take Carafate for her gastritis; she was given Toradol for her pain management. DICTATING PHYSICIAN: JOSH KAUR M.D. [id number] PHY#: [id number] ID: [id number] JOB#: [id number] ACCT: [id number] cc:JOSH KAUR M.D., WILLIAM M.D. > [facility]
== END 2017-12-12 14:07 | disposition home or self-care (01) | DRG 357 ==
LOC: ER 15:43 → EH 19:37 → 2N 22:20 → OBSVTOIN 12-07 10:00
PROVIDERS: ADMIT Surgery; ATTEND Surgery
PROC: 0FT44ZZ Resection of Gallbladder, Percutaneous Endoscopic Approach (ICD-10-PCS; 2017-12-07)
PROC: 0DB78ZX Excision of Stomach, Pylorus, Via Natural or Artificial Opening Endoscopic, Diagnostic (ICD-10-PCS; 2017-12-10)
PROC: 0DB68ZX Excision of Stomach, Via Natural or Artificial Opening Endoscopic, Diagnostic (ICD-10-PCS; 2017-12-10)
PROC: 0DB98ZX Excision of Duodenum, Via Natural or Artificial Opening Endoscopic, Diagnostic (ICD-10-PCS; principal; 2017-12-10 20:45)
DX: K29.00 Acute gastritis without bleeding (principal); K81.0 Acute cholecystitis; Z68.43 Body mass index [BMI] 50.0-59.9, adult; F17.200 Nicotine dependence, unspecified, uncomplicated; K29.80 Duodenitis without bleeding; N93.8 Other specified abnormal uterine and vaginal bleeding; E66.01 Morbid (severe) obesity due to excess calories; D69.6 Thrombocytopenia, unspecified
CPT/HCPCS: 36415; 43239; 71275; 731; 74177; 76705; 78226; 790; 80048; 80053; 81001; 83690; 84702; 85025; 85027; 88304; 88305; 88341; 88342; 96361; 96365; 96375; 96376; 99285; A9537; G0378; J0131; J0330; J1100; J1170; J1885; J1940; J2250; J2405; J2543; J2550; J2704; J3010; J3490; J7030; Q9969; S0028; S0164

== ENCOUNTER 2019-03-18 10:42 | Emergency (ER) | payer BC ==
--- NOTE | 2019-03-18 11:54 | ER Document Report ---
ED Respiratory Problem - General Chief Complaint: Sore Throat Stated Complaint: SORE THROAT Time Seen by Provider: 03/18/19 11:14 Mode of Arrival: Ambulatory Information source: Patient Notes: 23-year-old female presented to ED for complaint of sore throat body aches cough congestion sore throat and chest pain. She states the chest pain started before the cough and congestion. She states the sore throat started after the cough congestion and body aches. She states she does have a history of reflux ulcers and a gallbladder removal last year. She states she had foot surgery for a snakebite when she was a child. Patient is alert oriented respirations regular and unlabored speaking in full sentences walks with a even steady gait. She has a history of some elevated blood pressure but her doctor told her that it was normal. TRAVEL OUTSIDE OF THE [place] IN LAST 30 DAYS: No - HPI Patient complains to provider of: Cough, Other - Cough congestion short of breath sore throat postnasal drip Onset: Other - 2 days Duration: Continuous Initiating Event: URI Quality of pain: Sharp - Sharp pain to the throat achy body and some chest tightness at times Severity: Moderate Pain Level: 4 Context: Other - Cough congestion sore throat chest pain body aches Chest pain/discomfort: Tightness Cough: Nonproductive Sputum amount: None Associated symptoms: Chest pain/discomfort, Congestion, Cough, PND, Runny nose, Sinus pain/pressure, Sore Throat, Other Similar symptoms previously: Yes Recently seen / treated by doctor: No - Related Data Allergies/Adverse Reactions: tramadol Allergy (Verified 03/18/19 10:49) Past Medical History - General Information source: Patient - Social History Smoking Status: Never Smoker Frequency of alcohol use: None Drug Abuse: None Lives with: Family Family History: Reviewed & Not Pertinent Patient has suicidal ideation: No Patient has homicidal ideation: No - Past Medical History Cardiac Medical History: Reports: None Pulmonary Medical History: Reports: None EENT Medical History: Reports: None Neurological Medical History: Reports: None. Denies: Hx Seizures Endocrine Medical History: Reports: None Renal/ Medical History: Reports: None Malignancy Medical History: Reports: None GI Medical History: Reports: Hx Gastroesophageal Reflux Disease, Hx Ulcer, Hx Endoscopy Musculoskeletal Medical History: Reports Hx Arthritis - back / takes steroid shots x 1 6 mts ago Skin Medical History: Reports None Psychiatric Medical History: Reports: None Traumatic Medical History: Reports: None Infectious Medical History: Reports: None Past Surgical History: Reports: Hx Cholecystectomy, Hx Orthopedic Surgery - Left foot debridment x 2 after copper snake bite - Immunizations Immunizations up to date: Yes Hx Diphtheria, Pertussis, Tetanus Vaccination: Yes Review of Systems - Review of Systems Constitutional: Recent illness EENT: Nose discharge, Sinus discharge, Throat pain Cardiovascular: No symptoms reported Respiratory: Cough Gastrointestinal: No symptoms reported Genitourinary: No symptoms reported Female Genitourinary: No symptoms reported Musculoskeletal: No symptoms reported Skin: No symptoms reported Hematologic/Lymphatic: No symptoms reported Neurological/Psychological: No symptoms reported -: Yes All other systems reviewed and negative Physical Exam - Vital signs Vitals: Temp Pulse Resp BP Pulse Ox 99.3 F 113 H 16 129/93 H 98 03/18/19 11:01 03/18/19 11:01 03/18/19 11:01 03/18/19 11:01 03/18/19 11:01 Interpretation: Normal - General General appearance: Appears well, Alert - HEENT Head: Normocephalic, Atraumatic Eyes: Normal Pupils: PERRL Ears: Normal External canal: Normal Tympanic membrane: Normal Sinus: Normal Nasal: Purulent discharge Mouth/Lips: Normal Mucous membranes: Normal Pharynx: Erythema, Post nasal drainage. No: Tonsillar hypertrophy Neck: Normal - Respiratory Respiratory status: No respiratory distress Chest status: Nontender Breath sounds: Nonproductive cough Chest palpation: Normal - Cardiovascular Rhythm: Regular Heart sounds: Normal auscultation Murmur: No - Abdominal Inspection: Normal Distension: No distension Bowel sounds: Normal Tenderness: Nontender Organomegaly: No organomegaly - Back Back: Normal, Nontender - Extremities General upper extremity: Normal inspection, Nontender, Normal color, Normal ROM, Normal temperature General lower extremity: Normal inspection, Nontender, Normal color, Normal ROM, Normal temperature, Normal weight bearing. No: Patrick's sign - Neurological Neuro grossly intact: Yes Cognition: Normal Orientation: AAOx4 Makinen Coma Scale Eye Opening: Spontaneous Carina Coma Scale Verbal: Oriented Makinen Coma Scale Motor: Obeys Commands Makinen Coma Scale Total: 15 Speech: Normal Motor strength normal: LUE, RUE, LLE, RLE Sensory: Normal - Psychological Associated symptoms: Normal affect, Normal mood - Skin Skin Temperature: Warm Skin Moisture: Dry Skin Color: Normal Course - Re-evaluation Re-evalutation: 03/18/19 15:24 After performing a Medical Screening Examination, I estimate there is LOW risk for ACUTE CORONARY SYNDROME, RESPIRATORY FAILURE, SEPSIS OR MENINGITIS, thus I consider the discharge disposition reasonable. I have reevaluated this patient multiple times and no significant life threatening changes are noted. The patient and I have discussed the diagnosis and risks, and we agree with discharging home with close follow-up. We also discussed returning to the Emergency Department immediately if new or worsening symptoms occur. We have discussed the symptoms which are most concerning (e.g., changing or worsening pain, trouble swallowing or breathing, neck stiffness, fever) that necessitate immediate return. - Vital Signs Vital signs: Temp Pulse Resp BP Pulse Ox 98.6 F 98 20 144/92 H 98 03/18/19 12:29 03/18/19 12:29 03/18/19 12:29 03/18/19 12:29 03/18/19 12:29 - Laboratory Laboratory results interpreted by me: 03/18/19 11:30 Ur Leukocyte Esterase TRACE H - Diagnostic Test Radiology reviewed: Image reviewed, Reports reviewed - EKG Interpretation by Wy EKG shows normal: Sinus rhythm, Luther, Intervals, QRS Complexes Discharge - Discharge Clinical Impression: Viral sore throat URI (upper respiratory infection) Qualifiers: URI type: unspecified viral URI Qualified Code(s): J06.9 - Acute upper respiratory infection, unspecified Condition: Stable Disposition: HOME, SELF-CARE Instructions: Family Physicians / Practices Additional Instructions: SORE THROAT: Sore throats may be caused by viruses, bacteria, or fungi. Most are due to a virus, and must get better on their own. Bacterial sore throats, particularly those due to "strep," need treatment with antibiotics. If an antibiotic is prescribed, be sure to take the medication for a full 10 days. Failure to take the antibiotic can result in complications such as rheumatic fever. Sometimes, an injection of antibiotics is given instead of pills or liquid. This single "shot" is equal in effectiveness to the oral medication. To relieve symptoms, take acetaminophen for pain. Sip clear liquids frequently, or eat popsicles or ice chips. Anesthetic sprays or lozenges may help. Make sure the air in the room is not too dry. Avoid using decongestants or antihistamines. Call the doctor if there is no improvement in two days, or if you have difficulty breathing, increasing throat pain, high fever, rash, or frequent vomiting. UPPER RESPIRATORY ILLNESS: You have a viral infection of the respiratory passages -- a "cold." This common infection causes nasal congestion, drainage, and often sore throat and cough. It is highly contagious. The disease usually lasts about 10 to 14 days. There is no "cure" for the viral infection -- it must run its course. If there is a complication, such as bacterial infection in the nose, sinuses, middle ear, or bronchial tubes, antibiotics may be required. The antibiotics won't affect the virus. Drink plenty of fluids. A humidifier may help. An expectorant medication or decongestant may make you more comfortable. Use acetaminophen or ibuprofen for fever or aches. See the doctor if fever persists over two days, if there is any significant worsening of your symptoms, or if you simply fail to improve as expected. DECONGESTANT MEDICATION: A decongestant medicine has been suggested. Often this medicine is combined in the same tablet with an antihistamine or expectorant. This type of medicine is helpful in treating a bad cold or sinus condition, as well as in treatment of the nasal congestion of hay fever. It is not of much benefit for lung infections. Decongestant medicines are related to stimulants. They can cause an increase in blood pressure and heart rate. Persons with heart disease and high blood pressure should not take decongestants without discussing this with the physician. If you develop palpitations, chest pain, headache, or tremors, stop the medicine and consult your physician. COUGH-SUPPRESSANT & EXPECTORANT MEDICATION: You are to use a cough medication as needed for relief of symptoms. This medicine is a combination of an expectorant (to make the mucous thinner and more easily "coughed up") and a cough suppressant (to reduce the frequency of coughing). The cough-suppressant medicine is related to narcotics. You may experience mild nausea and sleepiness. Some patients who are very sensitive to narcotics may have stomach pain from this medicine. Taking the medicine with food reduces these side effects. Do not drive or work with machinery until you know how this medicine affects you. The expectorant should have no side effects. Iodine-containing expectorants (such as organidin) should not be taken by persons with active thyroid disease unless approved by your doctor. Call the doctor if you develop shortness of breath, hives, rash, itching, lightheadedness, or severe nausea and vomiting. USE OF ACETAMINOPHEN (Tylenol): Acetaminophen may be taken for pain relief or fever control. It's much safer than aspirin, offering a wider range of "safe" dosages. It is safe during . Some brand names are Tylenol, Panadol, Datril, Anacin 3, Tempra, and Liquiprin. Acetaminophen can be repeated every four hours. The following are maximum recommended dosages: >89 pounds or adults 650 mg to 900 mg Acetaminophen can be repeated every four hours. Maximum dose not to exceed 4000 mg a day. You can use Claritin and Sudafed Mucinex and Tylenol for your cough cold congestion and sore throat these are nyrv-olr-gqncpph medications. You could also use salt and soda solution gargles to remove the postnasal drip from the back your throat which is causing your sore throat. You can also use Chloraseptic spray which is stio-noh-yrnymmu. Salt and soda solution 1 quart of water 1 tablespoon of salt 1 teaspoon of baking soda Mixed 3 ingredients together and boil for 1 minute Placed in a covered quart jar Use 1/2 ounce of cold solution to gargle 3 times a day FOLLOW-UP CARE: If you have been referred to a physician for follow-up care, call the physicians office for an appointment as you were instructed or within the next two days. If you experience worsening or a significant change in your symptoms, notify the physician immediately or return to the Emergency Department at any time for re-evaluation. Forms: Elevated Blood Pressure, Return to Work
[2019-03-18 12:05] LABS: APPEARANCE,URINE CLEAR; BILIRUBIN,URINE NEGATIVE (NEGATIVE); COLOR,URINE YELLOW; GLUCOSE, URINE NEGATIVE (NEGATIVE); KETONES,URINE NEGATIVE (NEGATIVE); LEUKOCYTE ESTERASE,URINE TRACE (NEGATIVE); NITRITE,URINE NEGATIVE (NEGATIVE); PROTEIN,URINE NEGATIVE (NEGATIVE); UROBILINOGEN,URINE NEGATIVE mg/dL (<2.0)
--- NOTE | 2019-03-18 12:13 | RADIOLOGY REPORT (SQ) ---
EXAM DESCRIPTION: CHEST 2 VIEWS COMPLETED DATE/TIME: 03/18/2019 11:47 am REASON FOR STUDY: cough chest pain COMPARISON: None. EXAM PARAMETERS: NUMBER OF VIEWS: two views TECHNIQUE: Digital Frontal and Lateral radiographic views of the chest acquired. RADIATION DOSE: NA LIMITATIONS: none FINDINGS: LUNGS AND PLEURA: No opacities, masses or pneumothorax. No pleural effusion. MEDIASTINUM AND HILAR STRUCTURES: No masses or contour abnormalities. HEART AND VASCULAR STRUCTURES: Heart normal size. No evidence for failure. BONES: No acute findings. HARDWARE: None in the chest. OTHER: No other significant finding. IMPRESSION: No acute abnormality of the lungs. No focal airspace opacity. TECHNICAL DOCUMENTATION: JOB ID: [id number] [employer]- All Rights Reserved Reading location - IP/workstation name: [email or web address]
[2019-03-18 12:30] VITALS: BP 144/92
--- NOTE | 2019-03-18 22:26 | EKG REPORT ---
SEVERITY:- OTHERWISE NORMAL ECG - SINUS TACHYCARDIA : Confirmed by: Oscar Torres 18-Mar-2019 22:26:10
== END 2019-03-18 12:30 | disposition home or self-care (01) ==
LOC: ER 10:42
DX: J02.8 Acute pharyngitis due to other specified organisms (principal); B97.89 Other viral agents as the cause of diseases classified elsewhere; J02.9 Acute pharyngitis, unspecified; R05 Cough; R09.82 Postnasal drip; J34.89 Other specified disorders of nose and nasal sinuses; R07.89 Other chest pain; Z88.5 Allergy status to narcotic agent
CPT/HCPCS: 71046; 81001; 81025; 87070; 87880; 93005; 93010; 99283

== ENCOUNTER 2019-09-17 10:52 | Emergency (ER) | payer BC ==
[2019-09-17] MEDS ORDERED: PREDNISONE 20 MG TABLET PO ONE (11:58)
[2019-09-17] MEDS ORDERED: ACETAMINOPHEN 325 MG TABLET PO ONE (12:00)
--- NOTE | 2019-09-17 12:01 | ER Document Report ---
HPI - HPI Time Seen by Provider: 09/17/19 11:57 Pain Level: Denies Context: Patient is a 24-year-old female who presents emergency department with a chief complaint of cough. Patient reports for 1 week she has had body aches, nasal congestion, watering eyes and a dry hacking cough. Patient reports that she was seen at the urgent care last week and diagnosed with a viral illness. She reports that they did give her promethazine cough syrup which helps only tempora rily. Patient reports she has had sweats without noticeable fever. Patient reports that her mother has similar symptoms and was recently diagnosed with an ear infection. Patient denies any other use of skqe-klb-yjwegby medications. Patient reports she has intermittent runny nose and nasal congestion. She reports nausea without vomiting or diarrhea. Patient also reports low back pain without injury. Patient reports she does feel at times she does have some urinary frequency. - REPRODUCTIVE Reproductive: DENIES: : Past Medical History - General Information source: Patient - Social History Smoking Status: Never Smoker Frequency of alcohol use: None Drug Abuse: None Lives with: Family Family History: Reviewed & Not Pertinent Patient has suicidal ideation: No Patient has homicidal ideation: No - Past Medical History Cardiac Medical History: Reports: None Denies: Hx Congestive Heart Failure, Hx Heart Attack, Hx Hypertension Pulmonary Medical History: Reports: None Denies: Hx Asthma, Hx Bronchitis, Hx COPD, Hx Pneumonia, Hx Tuberculosis EENT Medical History: Reports: None Neurological Medical History: Reports: None. Denies: Hx Seizures, Hx Parkinson's Disease Endocrine Medical History: Reports: None Renal/ Medical History: Reports: None. Denies: Hx End Stage Renal Disease, Hx Kidney Stones, Hx Peritoneal Dialysis Malignancy Medical History: Reports: None GI Medical History: Reports: Hx Gastroesophageal Reflux Disease, Hx Ulcer, Hx Endoscopy Musculoskeletal Medical History: Reports Hx Arthritis - back / takes steroid shots x 1 6 mts ago Skin Medical History: Reports None Psychiatric Medical History: Reports: None Denies: Hx Bipolar Disorder, Hx Depression, Hx Schizophrenia Traumatic Medical History: Reports: None Infectious Medical History: Reports: None Past Surgical History: Reports: Hx Cholecystectomy, Hx Orthopedic Surgery - Left foot debridment x 2 after copper snake bite - Immunizations Immunizations up to date: Yes Hx Diphtheria, Pertussis, Tetanus Vaccination: Yes Vertical Provider Document - CONSTITUTIONAL Agree With Documented VS: Yes Exam Limitations: No Limitations General Appearance: No Apparent Distress - INFECTION CONTROL TRAVEL OUTSIDE OF THE [place] IN LAST 30 DAYS: No - HEENT HEENT: Atraumatic, Normal ENT Exam, Normocephalic, PERRLA Notes: Bilateral TMs easily visualized without erythema, edema or bulging. Landmarks easily visualized. Patient does not have any tragus or mastoid tenderness bilaterally. Throat is slightly erythematous without exudate. Uvula is midline. - NECK Neck: Normal Inspection Notes: No cervical lymphadenopathy. - RESPIRATORY Respiratory: Breath Sounds Normal, No Respiratory Distress Notes: Patient does not have any wheezing rales or rhonchi noted. Patient does have a persistent hacking cough in triage. - CARDIOVASCULAR Cardiovascular: Regular Rate, Regular Rhythm - GI/ABDOMEN Gastrointestinal: Abdomen Soft, Abdomen Non-Tender, Normal Bowel Sounds - REPRODUCTIVE Female Genitalia: Normal Inspection Notes: No CVA tenderness. - MUSCULOSKELETAL/EXTREMETIES Musculoskeletal/Extremeties: FROM - NEURO Level of Consciousness: Awake, Alert, Appropriate - DERM Integumentary: Warm, Dry, No Rash Course - Re-evaluation Re-evalutation: 09/17/19 13:56 Upon reevaluation patient is resting comfortably on chair. There is no acute distress but does have an intermittent cough. Will give patient Tessalon Perles prior to discharge. Patient symptoms most likely due to an upper respiratory infection as her mother has similar symptoms due to a virus. Did discuss this with the patient. We will give a work note, steroids for her cough as she has had this for over 1 week as well as cough suppressant. Patient given strict return precautions. - Vital Signs Vital signs: Temp Pulse Resp BP Pulse Ox 98.6 F 99 16 141/98 H 98 09/17/19 10:59 09/17/19 10:59 09/17/19 10:59 09/17/19 10:59 09/17/19 10:59 - Laboratory Laboratory results interpreted by me: 09/17/19 13:56 Laboratory 09/17/19 09/17/19 11:59 12:06 Urine Color YELLOW Urine Appearance SLIGHTLY-CLOUDY Urine pH 6.0 Ur Specific [place] 1.027 Urine Protein NEGATIVE Urine Glucose (UA) NEGATIVE Urine Ketones NEGATIVE Urine Blood NEGATIVE Urine Nitrite NEGATIVE Urine Bilirubin NEGATIVE Urine Urobilinogen NEGATIVE Ur Leukocyte Esterase SMALL H Urine WBC (Auto) 2 Urine RBC (Auto) 0 Squamous Epi Cells Auto 8 Urine Mucus (Auto) OCC Urine Ascorbic Acid 40 H Urine HCG, Qual NEGATIVE Influenza A (Rapid) NEGATIVE Influenza B (Rapid) NEGATIVE - Diagnostic Test Radiology reviewed: Reports reviewed Radiology results interpreted by me: 09/17/19 13:56 Chest X-Ray 09/17/19 11:57 IMPRESSION: NO ACUTE RADIOGRAPHIC FINDING IN THE CHEST. Discharge - Discharge Clinical Impression: Cough, Congestion of respiratory tract Condition: Stable Disposition: HOME, SELF-CARE Additional Instructions: UPPER RESPIRATORY ILLNESS: You have a viral infection of the respiratory passages -- a "cold." This common infection causes nasal congestion, drainage, and often sore throat and cough. It is highly contagious. The disease usually lasts about 10 to 14 days. There is no "cure" for the viral infection -- it must run its course. If there is a complication, such as bacterial infection in the nose, sinuses, middle ear, or bronchial tubes, antibiotics may be required. The antibiotics won't affect the virus. Drink plenty of fluids. A humidifier may help. An expectorant medication or decongestant may make you more comfortable. Use acetaminophen or ibuprofen for fever or aches. See the doctor if fever persists over two days, if there is any significant worsening of your symptoms, or if you simply fail to improve as expected. COUGH-SUPPRESSANT & EXPECTORANT MEDICATION: You are to use a cough medication as needed for relief of symptoms. This medicine is a combination of an expectorant (to make the mucous thinner and more easily "coughed up") and a cough suppressant (to reduce the frequency of coughing). The cough-suppressant medicine is related to narcotics. You may experience mild nausea and sleepiness. Some patients who are very sensitive to narcotics may have stomach pain from this medicine. Taking the medicine with food reduces these side effects. Do not drive or work with machinery until you know how this medicine affects you. The expectorant should have no side effects. Iodine-containing expectorants (such as organidin) should not be taken by persons with active thyroid disease unless approved by your doctor. Call the doctor if you develop shortness of breath, hives, rash, itching, lightheadedness, or severe nausea and vomiting. STEROID MEDICATION: You have been given an injection of or oral medicine of the cortisone/steroid class. This medication is used to control inflammation or allergy. Jose t is usually only given for a short period of time, until the acute process subsides. There are usually no side effects from short-term use of cortisone-like medications. Some persons feel an increased sense of well-being and are not sleepy at bedtime. Long-term use of cortisone medications is best avoided, unless required for a severe condition. If your condition does not remit, or relapses after the course of corticosteroid medication, you should consult your physician. USE OF ACETAMINOPHEN (Tylenol): Acetaminophen may be taken for pain relief or fever control. It's much safer than aspirin, offering a wider range of "safe" dosages. It is safe during . Some brand names are Tylenol, Panadol, Datril, Anacin 3, Tempra, and Liquiprin. Acetaminophen can be repeated every four hours. The following are maximum recommended dosages: >89 pounds or adults 650 mg to 900 mg Acetaminophen can be repeated every four hours. Maximum dose not to exceed 4000 mg a day. SMOKING: If you smoke, you should stop smoking. The tar and chemicals in cigarette smoke are harmful. Smoking has been shown to cause: emphysema chronic bronchitis lung cancer mouth and throat cancer stomach and pancreas cancer premature aging defects In addition, smoking increases ear and lung infections in children of smokers. FOLLOW-UP CARE: If you have been referred to a physician for follow-up care, call the physicians office for an appointment as you were instructed or within the next two days. If you experience worsening or a significant change in your symptoms, notify the physician immediately or return to the Emergency Department at any time for re-evaluation. Prescriptions: Benzonatate [Tessalon Perle 100 mg Capsule] 100 mg PO Q8HP PRN #40 cap PRN Reason: Prednisone [Deltasone 10 mg Tablet] 10 mg PO ASDIR PRN #21 tablet PRN Reason: Forms: Return to Work
[2019-09-17 12:27] LABS: APPEARANCE,URINE SLIGHTLY-CLOUDY; BILIRUBIN,URINE NEGATIVE (NEGATIVE); COLOR,URINE YELLOW; GLUCOSE, URINE NEGATIVE (NEGATIVE); KETONES,URINE NEGATIVE (NEGATIVE); LEUKOCYTE ESTERASE,URINE SMALL (NEGATIVE); NITRITE,URINE NEGATIVE (NEGATIVE); PROTEIN,URINE NEGATIVE (NEGATIVE); URINE SPECIFIC GRAVITY 1.027; UROBILINOGEN,URINE NEGATIVE mg/dL (<2.0)
[2019-09-17 12:34] LABS: A TYPE INFLUENZA AG NEGATIVE (NEGATIVE); B INFLUENZA AG NEGATIVE (NEGATIVE)
--- NOTE | 2019-09-17 13:39 | RADIOLOGY REPORT (SQ) ---
EXAM DESCRIPTION: CHEST 2 VIEWS COMPLETED DATE/TIME: 09/17/2019 12:34 pm REASON FOR STUDY: COUGH X 1 WEEK COMPARISON: 03/18/2019 EXAM PARAMETERS: NUMBER OF VIEWS: two views TECHNIQUE: Digital Frontal and Lateral radiographic views of the chest acquired. RADIATION DOSE: NA LIMITATIONS: none FINDINGS: LUNGS AND PLEURA: No opacities, masses or pneumothorax. No pleural effusion. MEDIASTINUM AND HILAR STRUCTURES: No masses or contour abnormalities. HEART AND VASCULAR STRUCTURES: Heart normal size. No evidence for failure. BONES: No acute findings. HARDWARE: None in the chest. OTHER: No other significant finding. IMPRESSION: NO ACUTE RADIOGRAPHIC FINDING IN THE CHEST. TECHNICAL DOCUMENTATION: JOB ID: [id number] [employer]- All Rights Reserved Reading location - IP/workstation name: [email or web address]
[2019-09-17] MEDS ORDERED: BENZONATATE 100 MG CAPSULE PO ONE (13:54)
[2019-09-17 14:07] VITALS: BP 142/70
== END 2019-09-17 14:07 | disposition home or self-care (01) ==
LOC: ER 10:52
DX: R05 Cough (principal); R09.81 Nasal congestion; R61 Generalized hyperhidrosis; R11.0 Nausea; M54.5 Low back pain; R35.0 Frequency of micturition; Z20.828 Contact with and (suspected) exposure to other viral communicable diseases
CPT/HCPCS: 71046; 81001; 81025; 87804; 99283

== ENCOUNTER 2019-12-10 05:55 | Emergency (ER) | payer BC ==
[2019-12-10 06:12] VITALS: BP 138/76
--- NOTE | 2019-12-10 07:21 | ER Document Report ---
HPI - HPI Time Seen by Provider: 12/10/19 06:28 Pain Level: 5 Notes: Patient is a 24-year-old female presenting to the emergency department chief complaint of dental pain. Patient reports she had a dental extraction done 3 days ago. She states when I did her dental extraction he also knocked off 1 of her fillings that was on the adjacent tooth. They told her she will need to have this fixed but she was unable to afford the additional cost. Patient reports extreme pain. She is on antibiotics. She was given hydrocodone but is almost out. - REPRODUCTIVE Reproductive: DENIES: : Past Medical History - General Information source: Patient - Social History Smoking Status: Current Every Day Smoker Frequency of alcohol use: None Drug Abuse: None Family History: Reviewed & Not Pertinent Patient has suicidal ideation: No Patient has homicidal ideation: No - Past Medical History Cardiac Medical History: Denies: Hx Congestive Heart Failure, Hx Heart Attack, Hx Hypertension Pulmonary Medical History: Denies: Hx Asthma, Hx Bronchitis, Hx COPD, Hx Pneumonia, Hx Tuberculosis Neurological Medical History: Denies: Hx Seizures, Hx Parkinson's Disease Renal/ Medical History: Denies: Hx End Stage Renal Disease, Hx Kidney Stones, Hx Peritoneal Dialysis GI Medical History: Reports: Hx Gastroesophageal Reflux Disease, Hx Ulcer, Hx Endoscopy Musculoskeletal Medical History: Reports Hx Arthritis - back / takes steroid s hots x 1 6 mts ago Psychiatric Medical History: Denies: Hx Bipolar Disorder, Hx Depression, Hx Schizophrenia Past Surgical History: Reports: Hx Cholecystectomy, Hx Orthopedic Surgery - Left foot debridment x 2 after copper snake bite - Immunizations Immunizations up to date: Yes Hx Diphtheria, Pertussis, Tetanus Vaccination: Yes Vertical Provider Document - CONSTITUTIONAL Notes: PHYSICAL EXAMINATION: GENERAL: Well-appearing, well-nourished and in no acute distress. HEAD: Atraumatic, normocephalic. EYES: Pupils equal round extraocular movements intact, conjunctiva are normal. ENT: Nares patent, missing dental fillig at tooth #18, slight surrounding erythema, no obvious abscess. No trismus. NECK: Normal range of motion LUNGS: No respiratory distress Musculoskeletal: Normal range of motion NEUROLOGICAL: Normal speech, normal gait. PSYCH: Normal mood, normal affect. SKIN: Warm, Dry, normal turgor, no rashes or lesions noted. - INFECTION CONTROL TRAVEL OUTSIDE OF THE [place] IN LAST 30 DAYS: No Course - Re-evaluation Re-evalutation: Patient will be even short course of additional pain medications. She will be encouraged to follow back up with her dentist or the [facility]. Patient is in agreements with this plan. Patient also encouraged to continue taking antibiotics as prescribed. - Vital Signs Vital signs: Temp Pulse Resp BP Pulse Ox 98.0 F 89 18 138/76 H 100 12/10/19 06:11 12/10/19 06:11 12/10/19 06:11 12/10/19 06:11 12/10/19 06:11 Discharge - Discharge Clinical Impression: Pain, dental Condition: Stable Disposition: HOME, SELF-CARE Additional Instructions: Please follow-up with either your dentist or the [facility]. The [facility] phone number is [phone]. Take ibuprofen 600 mg every 6 hours. Take the hydrocodone 1 to 2 tablets every 4 hours as needed for severe pain only. Alternate heat and ice to the area. Continue taking the amoxicillin as prescribed. Prescriptions: Ibuprofen [Motrin 600 mg Tablet] 600 mg PO Q6H PRN #40 tablet PRN Reason: Hydrocodone/Acetaminophen [[place] 5-325 mg Tablet] 2 tab PO Q4H #12 tablet Forms: Return to Work Referrals: ANU RICHARDS MD [Primary Care Provider] - Follow up as needed
== END 2019-12-10 07:41 | disposition home or self-care (01) ==
LOC: ER 05:55
DX: K08.9 Disorder of teeth and supporting structures, unspecified (principal); G89.18 Other acute postprocedural pain; F17.200 Nicotine dependence, unspecified, uncomplicated; Z90.49 Acquired absence of other specified parts of digestive tract
CPT/HCPCS: 99282

== ENCOUNTER 2020-01-18 20:01 | Emergency (ER) | payer BC ==
[2020-01-18] MEDS ORDERED: LIDOCAINE 2% VISCOUS SOLN 15 ML UDCUP PO ONE (20:14)
[2020-01-18] MEDS ORDERED: PENICILLIN V POTASSIUM 500 MG TABLET PO ONE (20:14)
--- NOTE | 2020-01-18 20:20 | ER Document Report ---
ED Oral Problem - General Chief Complaint: Toothache Stated Complaint: TOOTHACHE Time Seen by Provider: 01/18/20 20:08 Primary Care Provider: ANU RICHARDS MD [Primary Care Provider] - Follow up as needed Mode of Arrival: Ambulatory Information source: Patient Notes: 24-year-old female presented to ED for complaint of dental pain to the left lower jaw. She states that she had a root canal with a temporary cap but never got the primary Because of the coronavirus pandemic. She states over the last 3 or 4 days the tooth and started becoming more more painful. She states she went to an urgent care this afternoon and had a video visit and they gave her 8 hydrocodone but this did not help so she came to the emergency room for some help with her discomfort. Patient states she is not looking for more narcotics she is looking for something to help her to reduce the pain. TRAVEL OUTSIDE OF THE [place] IN LAST 30 DAYS: No - HPI Patient complains to provider of: Toothache Onset: Other Onset: Gradual - Last 3 days Quality of pain: Sharp, Throbbing Severity: Severe Pain Level: 5 Associated symptoms: Toothache Worsened by: Cold Relieved by: Nothing Similar symptoms previously: Yes Recently seen / treated by doctor/dentist: Yes - Related Data Allergies/Adverse Reactions: tramadol Allergy (Verified 03/18/19 10:49) Past Medical History - General Information source: Patient - Social History Smoking Status: Current Every Day Smoker Cigarette use (# per day): Yes - 1 black and mild a day Chew tobacco use (# tins/day): No Smoking Education Provided: Yes Frequency of alcohol use: None Drug Abuse: None 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 Denies: Hx Seizures, Hx Parkinson's Disease Endocrine Medical History: Reports: None Renal/ Medical History: Reports: None Malignancy Medical History: Reports: None GI Medical History: Reports: Hx Gastroesophageal Reflux Disease, Hx Ulcer, Hx Endoscopy Musculoskeletal Medical History: Reports Hx Arthritis - back / takes steroid shots x 1 6 mts ago Skin Medical History: Reports None Psychiatric Medical History: Reports: None Traumatic Medical History: Reports: None Infectious Medical History: Reports: None Past Surgical History: Reports: Hx Cholecystectomy, Hx Orthopedic Surgery - Left foot debridment x 2 after copper snake bite - Immunizations Immunizations up to date: Yes Hx Diphtheria, Pertussis, Tetanus Vaccination: Yes Review of Systems - Review of Systems Constitutional: No symptoms reported EENT: Mouth pain, Dental problem Cardiovascular: No symptoms reported Respiratory: No symptoms reported Gastrointestinal: No symptoms reported Genitourinary: No symptoms reported Female Genitourinary: No symptoms reported Musculoskeletal: No symptoms reported Skin: No symptoms reported Hematologic/Lymphatic: No symptoms reported Neurological/Psychological: No symptoms reported -: Yes All other systems reviewed and negative Physical Exam - Vital signs Vitals: Temp Pulse Resp BP Pulse Ox 98.8 F 85 16 155/105 H 99 01/18/20 20:05 01/18/20 20:05 01/18/20 20:05 01/18/20 20:05 01/18/20 20:05 Interpretation: Normal - General General appearance: Appears well, Alert - HEENT Head: Normocephalic, Atraumatic Eyes: Normal Pupils: PERRL Mouth/Lips: Other - Collapsing temporary To a root canal causing pain to the tooth and irritation to the gum Pharynx: Normal Neck: Normal - Respiratory Respiratory status: No respiratory distress Chest status: Nontender Breath sounds: Normal Chest palpation: Normal - Cardiovascular Rhythm: Regular Heart sounds: Normal auscultation Murmur: No - Abdominal Inspection: Normal Distension: No distension Bowel sounds: Normal Tenderness: Nontender Organomegaly: No organomegaly - Back Back: Normal, Nontender - Extremities General upper extremity: Normal inspection, Nontender, Normal color, Normal ROM, Normal temperature General lower extremity: Normal inspection, Nontender, Normal color, Normal ROM, Normal temperature, Normal weight bearing. No: Patrick's sign - Neurological Neuro grossly intact: Yes Cognition: Normal Orientation: AAOx4 [place] Coma Scale Eye Opening: Spontaneous [place] Coma Scale Verbal: Oriented [place] Coma Scale Motor: Obeys Commands Leupp Coma Scale Total: 15 Speech: Normal Motor strength normal: LUE, RUE, LLE, RLE Sensory: Normal - Psychological Associated symptoms: Normal affect, Normal mood - Skin Skin Temperature: Warm Skin Moisture: Dry Skin Color: Normal Course - Re-evaluation Re-evalutation: 01/18/20 20:32 She was treated with penicillin VK for the irritation and inflammation from the failed temporary And viscous lidocaine for the pain. Patient states she did get some relief from the pain. Her pain went from a 5/5 to a 3 /5. - Vital Signs Vital signs: Temp Pulse Resp BP Pulse Ox 98.8 F 85 16 137/88 H 99 01/18/20 20:07 01/18/20 20:05 01/18/20 20:05 01/18/20 20:22 01/18/20 20:05 Discharge - Discharge Clinical Impression: Pain due to dental caries Condition: Stable Disposition: HOME, SELF-CARE Additional Instructions: You were seen today for dental pain in your left lower jaw after you previously had a root canal and did not get the procedure completed due to the virus pandemic going on. You now have pain in the area with some decay. You have been given narcotics by your urgent care for your pain. We have given you some viscous lidocaine in a syringe. You can put a small amount of this lidocaine on your finger and rub to the gums and tooth that is causing you the pain. You can do this every 4 hours as needed. You cannot do it more often than every 4 hours or will erode the skin from your gums and cause more pain. Very important that you do not smoke cigarettes or suck on a straw or do any sucking motion until the dental procedure is completed as it will cause more pain to the area. Penicillin VK You have been given a prescription for Penicillin VK. Your physician has determined that this is the best antibiotic for your condition. Pen VK can be taken with meals, however more of the antibiotic gets into the bloodstream if it's taken on an empty stomach. Penicillin usually has no side effects. However, allergy to penicillins is common. If you have had an allergic reaction to any drug of the penicillin family, you should never take any other penicillin. Notify your doctor at once if you develop hives, itching, swelling, faintness, or shortness of breath. Acetaminophen Acetaminophen may be taken for pain relief or fever control. It's much safer than aspirin, offering a wider range of "safe" dosages. It is safe during . Some brand names are Tylenol, Panadol, Datril, Anacin 3, Tempra, and Liquiprin. Acetaminophen can be repeated every four hours. The following are maximum recommended dosages: WEIGHT Dose Drops Elixir Chewable(80mg) (LBS.) drprs=droppers tsp=teaspoon 6 40 mg .4 ml (1/2) 6-11 80 mg .8 ml (full) 1/2 tsp 1 tab 12-16 120 mg 1 1/2 drprs 3/4 tsp 1 1/2 tabs 17-23 160 mg 2 drprs 1 tsp 2 tabs 24-30 240 mg 3 drprs 1 1/2 tsp 3 tabs 30-35 320 mg 2 tsp 4 tabs 36-41 360 mg 2 1/4 tsp 4 1/2 tabs 42-47 400 mg 2 1/2 tsp 5 tabs 48-53 480 mg 3 tsp 6 tabs 54-59 520 mg 3 1/4 tsp 6 1/2 tabs 60-64 560 mg 3 1/2 tsp 7 tabs 65-70 600 mg 3 3/4 tsp 7 1/2 tabs 71-76 640 mg 4 tsp 8 tabs 77-82 720 mg 4 1/2 tsp 9 tabs 83-88 800 mg 5 tsp 10 tabs >89 pounds or adults 650 mg to 900 mg Acetaminophen can be repeated every four hours. Maximum daily dose not to exceed 4000 mg. These maximum recommended dosages are slightly higher than the dosages written on the product container, but these dosages are very safe and well below the toxic dosage for acetaminophen. Ibuprofen Ibuprofen is an excellent, safe drug for pain control. In addition, it has potent antiinflammatory effects which are beneficial, especially in the treatment of injuries, arthritis, or tendonitis. It's best to take ibuprofen with food. Persons with ulcer disease or allergy to aspirin should notify their physician of this before taking ibuprofen. Take the medication exactly as prescribed. Don't take additional doses unless instructed to do so by your doctor. If you develop wheezing, shortness of breath, hives, faintness, stomach pain, vomiting, or dark black stools, return for re-evaluation at once. FOLLOW-UP CARE: If you have been referred to a physician for follow-up care, call the physicians office for an appointment as you were instructed or within the next two days. If you experience worsening or a significant change in your symptoms, notify the physician immediately or return to the Emergency Department at any time for re-evaluation. Prescriptions: Penicillin V Potassium [Penicillin Vk 500 mg Tablet] 500 mg PO BID #20 tablet Forms: Smoking Cessation Education, Return to Work, Elevated Blood Pressure Referrals: ANU RICHARDS MD [Primary Care Provider] - Follow up as needed
[2020-01-18 20:23] VITALS: BP 137/88
== END 2020-01-18 20:34 | disposition home or self-care (01) ==
LOC: ER 20:01
DX: K02.9 Dental caries, unspecified (principal); K08.89 Other specified disorders of teeth and supporting structures; F17.210 Nicotine dependence, cigarettes, uncomplicated; Z98.890 Other specified postprocedural states; Z88.6 Allergy status to analgesic agent
CPT/HCPCS: 99282; J3490